=== PATIENT | male | born 1950 | race Caucasian/White ===

== ENCOUNTER 2016-08-06 11:35 | Inpatient (IN) | payer MEDICARE, OTHER ==
[2016-08-06] MEDS ORDERED: SODIUM CHLORIDE 0.9% 1,000 ML IV STA (12:55)
[2016-08-06] MEDS ORDERED: SODIUM CHLORIDE 0.9% 500 ML IV STA (12:55)
--- NOTE | 2016-08-06 13:01 | ED ---
Weakness HPI - General Chief complaint: Weakness Stated complaint: GENERAL WEAKNESS, COUGHING Time Seen by Provider: 08/06/16 12:40 Source: family, RN notes reviewed Mode of arrival: wheelchair Limitations: no limitations - History of Present Illness Initial comments: This is a 66-year-old male with a history of Down syndrome who does get pneumonia who was brought in for evaluation for decreased oral intake over last couple days cough generally not feeling well weakness. He also is been defecating in his hands. When he gets like this he she has some type of infection per his caregiver. No trauma is reported no overt fevers chills or sweats he did have some shakiness. MD Complaint: generalized weakness - Related Data Home Medications Medication Instructions Recorded Confirmed Aspirin 81 mg PO DAILY 08/06/16 08/06/16 Cholecalciferol (Vitamin D3) 1 ml PO DAILY 08/06/16 08/06/16 [Vitamin D3] Omeprazole [PriLOSEC] 40 mg PO DAILY 08/06/16 08/06/16 Allergies Allergy/AdvReac Type Severity Reaction Status Date / Time No Known Allergies Allergy Verified 08/06/16 14:29 Review of Systems ROS Statement: Those systems with pertinent positive or pertinent negative responses have been documented in the HPI. ROS Other: All systems not noted in ROS Statement are negative. Limitations: ROS unobtainable due to patients medical condition Past Medical History Additional Past Medical History / Comment(s): NON VERBAL, DOWN SYNDROME,HERNIA History of Any Multi-Drug Resistant Organisms: None Reported Additional Past Surgical History / Comment(s): BOWEL OBSTRUCTION, ESOPHAGEAL STRETCHING Past Psychological History: No Psychological Hx Reported Smoking Status: Never smoker Past Alcohol Use History: None Reported Past Drug Use History: None Reported General Exam - General Exam Comments Initial Comments: This is a asthenic appearing patient with the stigmata of Down's Limitations: no limitations General appearance: alert, lethargic Head exam: Present: atraumatic, normocephalic, normal inspection Eye exam: Present: normal appearance, PERRL, EOMI. Absent: scleral icterus, conjunctival injection, periorbital swelling ENT exam: Present: mucous membranes dry Neck exam: Present: normal inspection. Absent: tenderness, meningismus, lymphadenopathy Respiratory exam: Present: rhonchi, decreased breath sounds Cardiovascular Exam: Present: normal rhythm, tachycardia GI/Abdominal exam: Present: soft, normal bowel sounds. Absent: distended, tenderness, guarding, rebound, rigid Extremities exam: Present: normal inspection, full ROM, normal capillary refill. Absent: tenderness, pedal edema, joint swelling, calf tenderness Back exam: Present: normal inspection Neurological exam: Present: alert, altered, CN II-XII intact Psychiatric exam: Present: flat affect Skin exam: Present: warm, dry, intact, normal color. Absent: rash Course Vital Signs 08/06/16 08/06/16 08/06/16 11:39 12:45 13:06 Temperature 97.2 F L 97.9 F Pulse Rate 131 H 126 H 121 H Respiratory 18 18 18 Rate Blood Pressure 89/39 107/56 105/57 O2 Sat by Pulse 93 L 89 L 90 L Oximetry 08/06/16 14:00 Temperature 98.1 F Pulse Rate 128 H Respiratory 18 Rate Blood Pressure 104/66 O2 Sat by Pulse 93 L Oximetry - Reevaluation(s) Reevaluation #1: 08/06/16 14:45 Reevaluation patient revealed improvement in blood pressure. He was receiving IV hydration. He was noted to have a small amount emesis. EKG Findings - EKG Results: EKG: interpreted by ERMD, sinus rhythm (Sinus rhythm rate of 126. Interval 190 QRS duration 56 daily since QTC of 252/364 nonspecific T-wave configuration artifact is present.) Medical Decision Making - Medical Decision Making I did reevaluate the patient on several occasions did discuss the findings with the caregiver as well as with Dr. Callaway. Patient will be admitted with consultation by Dr. Lynne the patient demonstrates pneumonia likely aspiration along with dehydration renal insufficiency and evidence a lactic acidosis most which likely is on the basis of dehydration. Patient will be placed on appropriate medications. - Lab Data Result diagrams: 08/06/16 12:00 08/06/16 12:00 Lab Results 08/06/16 08/06/16 08/06/16 Range/Units 12:00 12:00 12:00 WBC 24.1 H (3.8-10.6) k/uL RBC 4.61 (4.30-5.90) m/uL Hgb 15.3 (13.0-17.5) gm/dL Hct 48.2 (39.0-53.0) % MCV 104.6 H (80.0-100.0) fL MCH 33.1 (25.0-35.0) pg MCHC 31.7 (31.0-37.0) g/dL RDW 15.0 (11.5-15.5) % Plt Count 306 (150-450) k/uL Neutrophils % 95 % Lymphocytes % 2 % Monocytes % 3 % Eosinophils % 0 % Basophils % 0 % Neutrophils # 22.8 H (1.3-7.7) k/uL Lymphocytes # 0.4 L (1.0-4.8) k/uL Monocytes # 0.7 (0-1.0) k/uL Eosinophils # 0.0 (0-0.7) k/uL Basophils # 0.0 (0-0.2) k/uL Macrocytosis Moderate PT (9.0-12.0) sec INR (<1.1) APTT (22.0-30.0) sec Sodium 145 (137-145) mmol/L Potassium 4.3 (3.5-5.1) mmol/L Chloride 109 H (98-107) mmol/L Carbon Dioxide 22 (22-30) mmol/L Anion Gap 14 mmol/L BUN 25 H (9-20) mg/dL Creatinine 1.15 (0.66-1.25) mg/dL Est GFR (MDRD) Af Amer >60 (>60 ml/min/1.73 sqM) Est GFR (MDRD) Non-Af >60 (>60 ml/min/1.73 sqM) Glucose 164 H (74-99) mg/dL Plasma Lactic Acid Floyd (0.7-2.0) mmol/L Calcium 8.7 (8.4-10.2) mg/dL Magnesium 2.1 (1.6-2.3) mg/dL Total Bilirubin 0.5 (0.2-1.3) mg/dL AST 45 (17-59) U/L ALT 45 (21-72) U/L Alkaline Phosphatase 102 (38-126) U/L Total Creatine Kinase 919 H (55-170) U/L CK-MB (CK-2) 5.7 H* (0.0-2.4) ng/mL CK-MB (CK-2) Rel Index 0.6 Troponin I 0.018 (0.000-0.034) ng/mL NT-Pro-B Natriuret Pep pg/mL Total Protein 8.3 H (6.3-8.2) g/dL Albumin 3.5 (3.5-5.0) g/dL 08/06/16 08/06/16 08/06/16 Range/Units 12:00 12:00 12:00 WBC (3.8-10.6) k/uL RBC (4.30-5.90) m/uL Hgb (13.0-17.5) gm/dL Hct (39.0-53.0) % MCV (80.0-100.0) fL MCH (25.0-35.0) pg MCHC (31.0-37.0) g/dL RDW (11.5-15.5) % Plt Count (150-450) k/uL Neutrophils % % Lymphocytes % % Monocytes % % Eosinophils % % Basophils % % Neutrophils # (1.3-7.7) k/uL Lymphocytes # (1.0-4.8) k/uL Monocytes # (0-1.0) k/uL Eosinophils # (0-0.7) k/uL Basophils # (0-0.2) k/uL Macrocytosis PT 11.7 (9.0-12.0) sec INR 1.2 (<1.1) APTT 23.6 (22.0-30.0) sec Sodium (137-145) mmol/L Potassium (3.5-5.1) mmol/L Chloride (98-107) mmol/L Carbon Dioxide (22-30) mmol/L Anion Gap mmol/L BUN (9-20) mg/dL Creatinine (0.66-1.25) mg/dL Est GFR (MDRD) Af Amer (>60 ml/min/1.73 sqM) Est GFR (MDRD) Non-Af (>60 ml/min/1.73 sqM) Glucose (74-99) mg/dL Plasma Lactic Acid Floyd 5.1 H* (0.7-2.0) mmol/L Calcium (8.4-10.2) mg/dL Magnesium (1.6-2.3) mg/dL Total Bilirubin (0.2-1.3) mg/dL AST (17-59) U/L ALT (21-72) U/L Alkaline Phosphatase (38-126) U/L Total Creatine Kinase (55-170) U/L CK-MB (CK-2) (0.0-2.4) ng/mL CK-MB (CK-2) Rel Index Troponin I (0.000-0.034) ng/mL NT-Pro-B Natriuret Pep 873 pg/mL Total Protein (6.3-8.2) g/dL Albumin (3.5-5.0) g/dL - Radiology Data Radiology results: report reviewed (I did review the x-ray and report evidence of posterior lung infiltrates some may be chronic increasing on the left stable in the right.), image reviewed Critical Care Time Critical Care Time: Yes Critical Care Time: 37 minutes of critical care time which includes initial monitoring of the patient with history physical lab and x-rays. Reevaluation patient several occasions. Discussion with the caregiver. Discussion with the admitting physician. Evaluation of old charting. Admission orders and documentation of the above. Disposition Clinical Impression: Aspiration pneumonia, Sepsis, Dehydration, Renal insufficiency syndrome, Tachycardia, Hypotensive episode Disposition: ADMITTED IP TO THIS [facility] Condition: Serious Referrals: Jax Callaway DO [Primary Care Provider] - 1-2 days
[2016-08-06 13:15] LABS: Basophils % (A) 0 %; CH 33.2; CHCM 31.9; Eosinophils % (A) 0 %; HCT 48.2 % (39.0-53.0); HDW 2.18; HGB 15.3 gm/dL (13.0-17.5); Luc # (Auto) 0.21; Luc % (Auto) 1; Lymphocytes # (A) 0.4 k/uL (1.0-4.8); Lymphocytes % (A) 2 %; MCH 33.1 pg (25.0-35.0); MCHC 31.7 g/dL (31.0-37.0); MCV 104.6 fL (80.0-100.0); Macrocytosis Moderate; Mean Platelet Volume 7.7; Monocytes # (A) 0.7 k/uL (0-1.0); Monocytes % (A) 3 %; Neutrophils # (A) 22.8 k/uL (1.3-7.7); Neutrophils % (A) 95 %; RBC 4.61 m/uL (4.30-5.90); WBC 24.1 k/uL (3.8-10.6); WBC (Perox) 24.89
--- NOTE | 2016-08-06 13:25 | XR ---
EXAMINATION TYPE: XR chest 2V DATE OF EXAM: 08/06/2016 1:15 PM COMPARISON: 06/14/2014 INDICATION: Weakness TECHNIQUE: Single frontal view of the chest is obtained. Patient is rotated slightly to the right. FINDINGS: The heart size is normal. The pulmonary vasculature is normal. Mild posterior infiltrates are present at the bilateral lung bases. A small right pleural effusion is likely present. IMPRESSION: 1. Posterior lung infiltrates. Correlate for pneumonia. Portion of this may be chronic. This is incre asing on the left and stable on the right.
[2016-08-06 13:30] LABS: ALT 45 U/L (21-72); AST 45 U/L (17-59); Alkaline Phosphatase 102 U/L (38-126); Anion Gap 14 mmol/L; Blood Urea Nitrogen 25 mg/dL (9-20); Calcium 8.7 mg/dL (8.4-10.2); Carbon Dioxide 22 mmol/L (22-30); Chloride 109 mmol/L (98-107); Glucose 164 mg/dL (74-99); Magnesium 2.1 mg/dL (1.6-2.3); Non-African American GFR(MDRD) >60 (>60 ml/min/1.73 sqM); Potassium 4.3 mmol/L (3.5-5.1); Sodium 145 mmol/L (137-145); Total Bilirubin 0.5 mg/dL (0.2-1.3); Total Protein 8.3 g/dL (6.3-8.2)
[2016-08-06 13:36] LABS: INR 1.2 (<1.1)
[2016-08-06 13:37] LABS: Partial Thromboplastin Time 23.6 sec (22.0-30.0); Prothrombin Time 11.7 sec (9.0-12.0)
[2016-08-06 13:47] LABS: Troponin I 0.018 ng/mL (0.000-0.034)
[2016-08-06 13:50] LABS: Creatine Kinase MB 5.7 ng/mL (0.0-2.4)
[2016-08-06] MEDS ORDERED: SODIUM CHLORIDE 0.9% 2,000 ML IV ONE (13:52)
[2016-08-06] MEDS ORDERED: LEVOFLOXACIN 500MG-D5W PMX 500 MG in DEXTROSE/WATER 1 100ML.BAG IVPB STA (13:52)
[2016-08-06] MEDS ORDERED: PIPERACILLIN-TAZOBACTAM 3.375 GM in DEXTROSE/WATER 1 50ML.BAG IVPB STA (13:53)
[2016-08-06] MEDS ORDERED: PNEUMONIA PROTOCOL UTILIZED 1 EACH MISC PO PRN (14:48)
[2016-08-06] MEDS: IPRATROPIUM-ALBUTEROL 3 ML NEB INHALATION SCH ×2 (15:48→19:05)
[2016-08-06 15:50] LABS: Amorphous Sediment,Urine Occasional /hpf; Appearance,Urine Cloudy (Clear); Bacteria,Urine Many /hpf; Bilirubin,Urine Negative (Negative); Glucose,Urine (UA) Negative (Negative); Ketones,Urine Negative (Negative); Leukocyte Esterase,Urine Trace (Negative); Mucus,Urine Rare /hpf; Nitrite,Urine Positive (Negative); PH, Urine 5.5 (5.0-8.0); Particle Count 26984; Protein,Urine Trace (Negative); RBC,Urine 1 /hpf (0-5); Specific Gravity,Urine 1.018 (1.001-1.035); Squamous Epithelial Cell,Urine 8 /hpf (0-4); UA Billing (MACRO vs. MICRO) MICRO; Urobilinogen,Urine <2.0 mg/dL (<2.0); WBC,Urine 22 /hpf (0-5)
[2016-08-06] MEDS ORDERED: ACETAMINOPHEN IV (For NPO) 1,000 MG in EMPTY BAG 1 BAG IVPB STA (19:14)
[2016-08-06] MEDS: SODIUM CHLORIDE 0.9% 1,000 ML IV SCH (19:39)
[2016-08-06 20:42] LABS: Glucose,Whole Blood 90 mg/dL (75-99)
[2016-08-06] MEDS ORDERED: NALOXONE 0.4 MG/ML 1 ML VIAL IV PRN (20:48)
[2016-08-06] MEDS ORDERED: IPRATROPIUM-ALBUTEROL 3 ML NEB INHALATION PRN (21:09)
[2016-08-06] MEDS: MICONAZOLE NITRATE 2% CREAM 14 GM TUBE TOPICAL SCH (23:07)
[2016-08-06] MEDS: PIPERACILLIN-TAZOBACTAM 3.375 GM in DEXTROSE/WATER 1 50ML.BAG IVPB SCH (23:59)
[2016-08-07] MEDS: HEPARIN SODIUM,PORCINE 5,000 UNIT/ML 1 ML VIAL SQ SCH ×4 (00:01→23:17)
[2016-08-07] MEDS: SODIUM CHLORIDE 0.9% 1,000 ML IV SCH ×3 (00:02→20:52)
[2016-08-07 06:13] LABS: INR 1.4 (<1.1); Prothrombin Time 13.6 sec (9.0-12.0)
[2016-08-07 06:16] LABS: Anion Gap 7 mmol/L; Blood Urea Nitrogen 16 mg/dL (9-20); Calcium 7.6 mg/dL (8.4-10.2); Carbon Dioxide 21 mmol/L (22-30); Chloride 111 mmol/L (98-107); Glucose 90 mg/dL (74-99); Magnesium 1.7 mg/dL (1.6-2.3); Non-African American GFR(MDRD) >60 (>60 ml/min/1.73 sqM); Phosphorous 2.3 mg/dL (2.5-4.5); Potassium 4.3 mmol/L (3.5-5.1); Sodium 139 mmol/L (137-145)
[2016-08-07 06:23] LABS: Glucose,Whole Blood 79 mg/dL (75-99)
[2016-08-07] MEDS ORDERED: Magnesium Replacement Protocol 1 EACH MISC MISCELLANE PRN (06:37)
[2016-08-07 06:54] LABS: Basophils % (A) 0 %; CHCM 31.6; Eosinophils % (A) 0 %; HCT 38.3 % (39.0-53.0); HDW 2.13; Luc # (Auto) 0.21; Luc % (Auto) 1; Lymphocytes # (A) 0.9 k/uL (1.0-4.8); Lymphocytes % (A) 6 %; MCH 33.5 pg (25.0-35.0); MCHC 31.9 g/dL (31.0-37.0); MCV 104.8 fL (80.0-100.0); Macrocytosis Moderate; Mean Platelet Volume 7.1; Monocytes # (A) 0.4 k/uL (0-1.0); Monocytes % (A) 3 %; Neutrophils # (A) 13.5 k/uL (1.3-7.7); Neutrophils % (A) 90 %; RBC 3.65 m/uL (4.30-5.90); WBC 15.1 k/uL (3.8-10.6)
[2016-08-07] MEDS: MAGNESIUM SULFATE-D5W PMX 1 GM in DEXTROSE/WATER 1 100ML.BAG IVPB SCH ×2 (06:59→08:05)
[2016-08-07 07:10] LABS: HGB 12.2 gm/dL (13.0-17.5)
[2016-08-07] MEDS: IPRATROPIUM-ALBUTEROL 3 ML NEB INHALATION SCH ×4 (07:17→20:44)
[2016-08-07] MEDS ORDERED: PANTOPRAZOLE 40 MG TABLET PO SCH (07:30)
[2016-08-07] MEDS: PIPERACILLIN-TAZOBACTAM 3.375 GM in DEXTROSE/WATER 1 50ML.BAG IVPB SCH ×3 (08:04→23:17)
[2016-08-07] MEDS: MICONAZOLE NITRATE 2% CREAM 14 GM TUBE TOPICAL SCH ×2 (08:05→20:51)
--- NOTE | 2016-08-07 08:16 | XR ---
EXAMINATION TYPE: XR chest 1V DATE OF EXAM: 08/07/2016 6:39 AM COMPARISON: 08/06/2016 HISTORY: 66-year-old male pneumonia TECHNIQUE: Single frontal view of the chest is obtained. FINDINGS: Right lower patient rotation alters the normal cardiomediastinal contours. There is interval worsenin g in bilateral lower lung airspace opacity, particularly on the right with suggestion of a increased small right pleural effusion. Abnormal opacities extend up to the mid lung level. IMPRESSION: Interval worsening in bibasilar consolidation, particularly on the right. Increased small right pleur al effusion.
[2016-08-07] MEDS ORDERED: CHOLECALCIFEROL PO SCH (09:00)
[2016-08-07] MEDS: ASPIRIN 81 MG CHEW PO SCH (11:02)
--- NOTE | 2016-08-07 11:26 | P.CNPUL ---
History of Present Illness Consult date: 08/07/16 Requesting physician: Jax Callaway Reason for consult: pneumonia, other (sepsis, dehydration) Chief complaint: shortness of breath History of present illness: This is a 66-year-old male patient being evaluated and examined in the ICU today. This patient is well-known to our services. This patient was brought into the emergency room for generalized malaise, weakness, decreased oral intake , cough and shortness of breath. This patient does have a history of Down's syndrome and is known to get pneumonia quite frequently. He is also known to have a history of esophageal stenosis in the past which has required esophageal dilation, ultimately he has continued to have some difficulty with swallowing. Speech therapist tried to perform a swallow evaluation with the patient however he is still congested at this time, therefore she cannot say he passed or he failed due to his constant congestion. Patient does not have the ability to cough up his secretions on his own, cough remains weak. The cough continues to sound very congested and productive. Suction is hooked up at bedside, nurse continues to try to help the patient bring out the sputum however the patient continues to bite down on the younker. Patient was also noted to be febrile throughout the night, he was given IV acetaminophen which was effective. Upon examination the patient is resting up in bed on 5 L via nasal cannula he is noted to desaturate with any significant movement, requiring an increase in his oxygen at times. He is afebrile this morning. Review of Systems 14 point review of systems was completed and is negative other than what is noted in the HPI. Past Medical History Past Medical History: Pneumonia Additional Past Medical History / Comment(s): NON VERBAL, DOWN SYNDROME,HERNIA History of Any Multi-Drug Resistant Organisms: None Reported Past Surgical History: No Surgical Hx Reported Additional Past Surgical History / Comment(s): BOWEL OBSTRUCTION, ESOPHAGEAL STRETCHING Past Anesthesia/Blood Transfusion Reactions: No Reported Reaction Past Psychological History: No Psychological Hx Reported Additional Psychological History / Comment(s): hx of down syndrome Smoking Status: Never smoker Past Alcohol Use History: None Reported Past Drug Use History: None Reported Medications and Allergies Home Medications Medication Instructions Recorded Confirmed Type Aspirin 81 mg PO DAILY 08/06/16 08/06/16 History Cholecalciferol (Vitamin D3) 1 ml PO DAILY 08/06/16 08/06/16 History [Vitamin D3] Omeprazole [PriLOSEC] 40 mg PO DAILY 08/06/16 08/06/16 History Allergies Allergy/AdvReac Type Severity Reaction Status Date / Time No Known Allergies Allergy Verified 08/06/16 14:29 Physical Exam Vitals: Vital Signs Temp Pulse Pulse Pulse Resp BP BP 08/07/16 10:58 105 H 08/07/16 10:40 08/07/16 10:30 110 H 22 89/57 08/07/16 10:00 82 24 88/46 08/07/16 09:30 82 22 86/49 08/07/16 09:00 105 H 20 91/48 08/07/16 08:30 93 18 88/43 08/07/16 08:00 99.3 F 103 H 20 87/49 08/07/16 07:30 99.3 F 89 18 87/49 08/07/16 07:29 92 08/07/16 07:20 86 08/07/16 07:00 100 33 H 115/53 08/07/16 06:30 89 22 95/61 08/07/16 06:00 94 25 H 84/61 08/07/16 05:30 92 28 H 80/61 08/07/16 05:00 90 25 H 80/61 08/07/16 04:00 98.4 F 97 24 08/07/16 03:30 102 H 26 H 89/53 08/07/16 03:13 115 H 115 H 26 H 08/07/16 03:00 112 H 26 H 75/50 08/07/16 02:30 105 H 29 H 91/54 08/07/16 02:00 103 H 28 H 91/54 08/07/16 01:30 110 H 29 H 92/51 08/07/16 01:00 111 H 27 H 92/54 08/07/16 00:30 103 H 28 H 92/56 08/07/16 00:00 98.2 F 109 H 115 H 115 H 28 H 92/56 08/06/16 23:30 106 H 29 H 92/56 08/06/16 23:06 108 H 26 H 92/56 08/06/16 23:00 104 H 27 H 92/56 08/06/16 22:30 107 H 26 H 102/48 08/06/16 22:20 105 H 30 H 102/48 08/06/16 22:10 105 H 115 H 115 H 30 H 102/48 08/06/16 22:00 111 H 31 H 102/48 08/06/16 21:50 110 H 27 H 102/48 08/06/16 21:40 124 H 30 H 102/48 08/06/16 21:30 109 H 27 H 102/48 08/06/16 21:20 120 H 30 H 102/48 08/06/16 21:10 111 H 27 H 102/48 08/06/16 21:00 114 H 26 H 102/48 08/06/16 20:50 113 H 28 H 102/48 08/06/16 20:40 114 H 29 H 08/06/16 20:39 98.7 F 102 H 36 H 08/06/16 20:15 99.5 F 125 H 18 115/54 08/06/16 19:16 127 H 08/06/16 19:14 100.4 F H 124 H 18 109/63 08/06/16 19:05 129 H 08/06/16 19:02 98.7 F 115 H 20 102/48 08/06/16 18:16 100.1 F H 119 H 24 104/55 08/06/16 16:25 99.4 F 129 H 20 100/57 08/06/16 16:00 124 H 08/06/16 15:50 124 H 08/06/16 15:25 97.5 F L 130 H 22 109/60 08/06/16 14:00 98.1 F 128 H 18 104/66 08/06/16 13:06 121 H 18 105/57 08/06/16 12:45 97.9 F 126 H 18 107/56 08/06/16 11:39 97.2 F L 131 H 18 89/39 Pulse Ox 08/07/16 10:58 08/07/16 10:40 92 L 08/07/16 10:30 90 L 08/07/16 10:00 91 L 08/07/16 09:30 94 L 08/07/16 09:00 93 L 08/07/16 08:30 93 L 08/07/16 08:00 95 08/07/16 07:30 96 08/07/16 07:29 08/07/16 07:20 96 08/07/16 07:00 96 08/07/16 06:30 96 0523/17 06:00 95 08/07/16 05:30 94 L 08/07/16 05:00 96 08/07/16 04:00 96 08/07/16 03:30 94 L 08/07/16 03:13 08/07/16 03:00 93 L 08/07/16 02:30 08/07/16 02:00 94 L 08/07/16 01:30 92 L 08/07/16 01:00 95 08/07/16 00:30 95 08/07/16 00:00 95 08/06/16 23:30 95 08/06/16 23:06 94 L 08/06/16 23:00 94 L 08/06/16 22:30 93 L 08/06/16 22:20 94 L 08/06/16 22:10 95 08/06/16 22:00 94 L 08/06/16 21:50 94 L 08/06/16 21:40 91 L 08/06/16 21:30 95 08/06/16 21:20 95 08/06/16 21:10 95 08/06/16 21:00 94 L 08/06/16 20:50 94 L 08/06/16 20:40 95 08/06/16 20:39 93 L 08/06/16 20:15 94 L 08/06/16 19:16 08/06/16 19:14 08/06/16 19:05 08/06/16 19:02 95 08/06/16 18:16 96 08/06/16 16:25 94 L 08/06/16 16:00 08/06/16 15:50 08/06/16 15:25 90 L 08/06/16 14:00 93 L 08/06/16 13:06 90 L 08/06/16 12:45 89 L 08/06/16 11:39 93 L Intake and Output 08/06/16 08/07/16 08/07/16 22:59 06:59 14:59 Intake Total 200 912.5 325.0 Output Total 640 1131 470 Balance -440 -218.5 -145.0 Intake: IV 512.5 225.0 Piperacillin-Tazobactam 3 12.5 25.0 .375 gm In Dextrose/Water 1 50ml.bag @ 12.5 mls/hr IVPB Q8HR [facility]IZA Rx#: [id number] Sodium Chloride 0.9% 1, 500 200 000 ml @ 100 mls/hr IV . Q10H [facility]IZA Rx#:[id number] Intake, IV Titration 200 400 100 Amount Magnesium Sulfate-D5w Pmx 100 1 gm In Dextrose/Water 1 100ml.bag @ 100 mls/hr IVPB Q1H [facility]IZA Rx#: [id number] Sodium Chloride 0.9% 1, 200 400 000 ml @ 100 mls/hr IV . Q10H [facility]IZA Rx#:[id number] Output: Urine 640 1131 470 Uretheral (Tavares) 15 250 Other: Voiding Method Indwelling Catheter Indwelling Catheter Indwelling Catheter Weight 49.895 kg 49 kg 49 kg Patient Weight 08/08/16 06:59 Weight 49 kg GENERAL EXAM: Alert, nonverbal, comfortable in no apparent distress. HEAD: Normocephalic. EYES: Normal reaction of pupils, equal size. NOSE: Clear with pink turbinates. THROAT: No erythema or exudates. NECK: No masses, no JVD. CHEST: No chest wall deformity. LUNGS: Lung sounds course and congested throughout, bilateral rhonchi and wheezes scattered throughout. Bases diminished CVS: S1 and S2 normal with no audible mumurs, regular rhythm. ABDOMEN: No hepatosplenomegaly, normal bowel sounds, no guarding or rigidity. EXTREMITIES: No edema noted, pedal pulses palpable. SKIN: Bilateral erythema noted to feet CENTRAL NERVOUS SYSTEM: No focal deficits, tone is normal in all 4 extremities. Results - Laboratory Findings CBC and BMP: 08/07/16 05:37 08/07/16 05:37 PT/INR, D-dimer PT 13.6 sec (9.0-12.0) H 08/07/16 05:37 INR 1.4 (<1.1) 08/07/16 05:37 Abnormal lab findings: Abnormal Labs 08/06/16 08/06/16 08/06/16 12:00 12:00 12:00 WBC 24.1 H RBC Hgb Hct MCV 104.6 H Neutrophils # 22.8 H Lymphocytes # 0.4 L PT Chloride 109 H Carbon Dioxide BUN 25 H Glucose 164 H Plasma Lactic Acid Floyd Calcium Phosphorus Total Creatine Kinase 919 H CK-MB (CK-2) 5.7 H* Total Protein 8.3 H Urine Protein Ur Leukocyte Esterase Urine WBC Ur Squamous Epith Cells Amorphous Sediment Urine Bacteria Hyaline Casts Urine Mucus 08/06/16 08/06/16 08/06/16 12:00 15:10 16:35 WBC RBC Hgb Hct MCV Neutrophils # Lymphocytes # PT Chloride Carbon Dioxide BUN Glucose Plasma Lactic Acid Floyd 5.1 H* 4.8 H* Calcium Phosphorus Total Creatine Kinase CK-MB (CK-2) Total Protein Urine Protein Trace H Ur Leukocyte Esterase Trace H Urine WBC 22 H Ur Squamous Epith Cells 8 H Amorphous Sediment Occasional H Urine Bacteria Many H Hyaline Casts 3 H Urine Mucus Rare H 08/06/16 08/06/16 08/07/16 19:02 22:21 05:37 WBC 15.1 H RBC 3.65 L Hgb 12.2 L D Hct 38.3 L MCV 104.8 H Neutrophils # 13.5 H Lymphocytes # 0.9 L PT Chloride Carbon Dioxide BUN Glucose Plasma Lactic Acid Floyd 3.1 H* 3.3 H* Calcium Phosphorus Total Creatine Kinase CK-MB (CK-2) Total Protein Urine Protein Ur Leukocyte Esterase Urine WBC Ur Squamous Epith Cells Amorphous Sediment Urine Bacteria Hyaline Casts Urine Mucus 08/07/16 08/07/16 08/07/16 05:37 05:37 07:43 WBC RBC Hgb Hct MCV Neutrophils # Lymphocytes # PT 13.6 H Chloride 111 H Carbon Dioxide 21 L BUN Glucose Plasma Lactic Acid Floyd 2.3 H* Calcium 7.6 L Phosphorus 2.3 L Total Creatine Kinase CK-MB (CK-2) Total Protein Urine Protein Ur Leukocyte Esterase Urine WBC Ur Squamous Epith Cells Amorphous Sediment Urine Bacteria Hyaline Casts Urine Mucus - Diagnostic Findings Chest x-ray: report reviewed, image reviewed Assessment and Plan Plan: Assessment Bilateral pneumonia, more so on the right than the left, suspect aspiration pneumonia Small right pleural effusion Sepsis Dehydration Tachycardia Hypotension Plan Medications have been reviewed and will be continued as ordered. Continue with IV antibiotics. We will add IV steroids. Continue with pulmonary hygiene, coughing and deep breathing exercises, and supportive care. Supplemental oxygen to maintain oxygen saturations of 92% or better. Continue nebulizer treatments we will add budesonide to his current aerosol treatments. GI and DVT prophylaxis. We will switch his oral Protonix over to IV due to his difficulty with swallowing. Patient should be reevaluated tomorrow for swallow eval. Patient is a DO NOT RESUSCITATE, brother is at bedside and updated on plan of care and prognosis. We will continue to monitor labs/results and adjust treatment as necessary. Further recommendations pending. I performed an examination of the patient and discussed their management with the nurse practitioner. I have reviewed the nurse practitioner's note and agree with the documented findings and plan of care.
[2016-08-07] MEDS: methylPREDNISolone SOD SUCCI 40 MG/ML 1 ML VIAL IV SCH ×3 (11:55→23:16)
[2016-08-07] MEDS: PANTOPRAZOLE 40 MG/10 ML VIAL IVP SCH (11:55)
[2016-08-07 12:10] LABS: Glucose,Whole Blood 101 mg/dL (75-99)
[2016-08-07] MEDS: LEVOFLOXACIN 250MG-D5W PMX 250 MG in DEXTROSE/WATER 1 50ML.BAG IVPB SCH (14:26)
[2016-08-07] MEDS ORDERED: SODIUM CHLORIDE 0.9% 500 ML IV ONE (14:45)
[2016-08-07] MEDS ORDERED: LEVOFLOXACIN 750MG-D5W PMX 500 MG in DEXTROSE/WATER 1 150ML.BAG IVPB SCH (15:00)
--- NOTE | 2016-08-07 16:08 | P.HPIM ---
History of Present Illness H&P Date: 08/07/16 Chief Complaint: Generalized weakness, coughing Patient is a 66-year-old male, patient of Dr. Jax Callaway in the outpatient setting, with medical history significant for Down syndrome, bowel obstruction, esophageal stenosis requiring dilatation, dysphasia, and pneumonia. Patient presented to the emergency department with chief complaint of decreased oral intake, cough, and generalized weakness. Admission workup with evidence of dehydration, multilobar pneumonia, and severe sepsis. Patient was fluid resuscitated with 2.5 L of normal saline in the emergency department and started on IV antibiotics in form of Levaquin and Zosyn. Patient was admitted to the intensive care unit with consult to Dr. Lynne for pulmonary and ICU management. Patient is evaluated in the intensive care unit with brother at bedside. Patient is nonverbal. Per nurse, patient has a nonproductive, weak cough with inability to bring up much sputum. Patient is currently on 5 L nasal cannula with oxygen saturation of 88%. Blood pressure systolic in the high 80s to low 90s throughout the night. Urine output adequate. White count decreased to 15.1. Hemoglobin decreased to 12.2. Lactic acid decreased to 2.3 from 3.3 on admission. Past Medical History Past Medical History: Pneumonia Additional Past Medical History / Comment(s): NON VERBAL, DOWN SYNDROME,HERNIA History of Any Multi-Drug Resistant Organisms: None Reported Past Surgical History: No Surgical Hx Reported Additional Past Surgical History / Comment(s): BOWEL OBSTRUCTION, ESOPHAGEAL STRETCHING Past Anesthesia/Blood Transfusion Reactions: No Reported Reaction Past Psychological History: No Psychological Hx Reported Additional Psychological History / Comment(s): hx of down syndrome Smoking Status: Never smoker Past Alcohol Use History: None Reported Past Drug Use History: None Reported Medications and Allergies Home Medications Medication Instructions Recorded Confirmed Type Aspirin 81 mg PO DAILY 08/06/16 08/06/16 History Cholecalciferol (Vitamin D3) 1 ml PO DAILY 08/06/16 08/06/16 History [Vitamin D3] Omeprazole [PriLOSEC] 40 mg PO DAILY 08/06/16 08/06/16 History Allergies Allergy/AdvReac Type Severity Reaction Status Date / Time No Known Allergies Allergy Verified 08/06/16 14:29 Physical Exam Vitals: Vital Signs Temp Pulse Pulse Pulse Resp BP BP 08/07/16 14:00 93 20 90/46 05/23/17 13:30 95 24 90/47 05/23/17 13:00 115 H 22 90/47 08/07/16 12:30 124 H 22 109/43 08/07/16 12:00 99.6 F 110 H 24 91/41 08/07/16 11:30 125 H 22 101/48 08/07/16 11:10 117 H 08/07/16 11:00 97 24 96/58 08/07/16 10:58 105 H 08/07/16 10:40 08/07/16 10:30 110 H 22 89/57 08/07/16 10:00 82 24 88/46 08/07/16 09:30 82 22 86/49 08/07/16 09:00 105 H 20 91/48 08/07/16 08:30 93 18 88/43 08/07/16 08:00 99.3 F 103 H 20 87/49 08/07/16 07:30 99.3 F 89 18 87/49 08/07/16 07:29 92 08/07/16 07:20 86 08/07/16 07:00 100 33 H 115/53 08/07/16 06:30 89 22 95/61 08/07/16 06:00 94 25 H 84/61 08/07/16 05:30 92 28 H 80/61 08/07/16 05:00 90 25 H 80/61 08/07/16 04:00 98.4 F 97 24 08/07/16 03:30 102 H 26 H 89/53 08/07/16 03:13 115 H 115 H 26 H 08/07/16 03:00 112 H 26 H 75/50 08/07/16 02:30 105 H 29 H 91/54 08/07/16 02:00 103 H 28 H 91/54 08/07/16 01:30 110 H 29 H 92/51 08/07/16 01:00 111 H 27 H 92/54 08/07/16 00:30 103 H 28 H 92/56 08/07/16 00:00 98.2 F 109 H 115 H 115 H 28 H 92/56 08/06/16 23:30 106 H 29 H 92/56 17 23:06 108 H 26 H 92/56 08/06/16 23:00 104 H 27 H 92/56 08/06/16 22:30 107 H 26 H 102/48 08/06/16 22:20 105 H 30 H 102/48 08/06/16 22:10 105 H 115 H 115 H 30 H 102/48 08/06/16 22:00 111 H 31 H 102/48 08/06/16 21:50 110 H 27 H 102/48 08/06/16 21:40 124 H 30 H 102/48 08/06/16 21:30 109 H 27 H 102/48 08/06/16 21:20 120 H 30 H 102/48 08/06/16 21:10 111 H 27 H 102/48 08/06/16 21:00 114 H 26 H 102/48 08/06/16 20:50 113 H 28 H 102/48 08/06/16 20:40 114 H 29 H 08/06/16 20:39 98.7 F 102 H 36 H 08/06/16 20:15 99.5 F 125 H 18 115/54 08/06/16 19:16 127 H 08/06/16 19:14 100.4 F H 124 H 18 109/63 08/06/16 19:05 129 H 08/06/16 19:02 98.7 F 115 H 20 102/48 08/06/16 18:16 100.1 F H 119 H 24 104/55 08/06/16 16:25 99.4 F 129 H 20 100/57 08/06/16 16:00 124 H 08/06/16 15:50 124 H 08/06/16 15:25 97.5 F L 130 H 22 109/60 Pulse Ox 08/07/16 14:00 97 08/07/16 13:30 98 08/07/16 13:00 94 L 08/07/16 12:30 92 L 08/07/16 12:00 93 L 08/07/16 11:30 93 L 08/07/16 11:10 08/07/16 11:00 94 L 08/07/16 10:58 08/07/16 10:40 92 L 08/07/16 10:30 90 L 08/07/16 10:00 91 L 08/07/16 09:30 94 L 08/07/16 09:00 93 L 08/07/16 08:30 93 L 08/07/16 08:00 95 08/07/16 07:30 96 08/07/16 07:29 08/07/16 07:20 96 08/07/16 07:00 96 08/07/16 06:30 96 08/07/16 06:00 95 08/07/16 05:30 94 L 08/07/16 05:00 96 08/07/16 04:00 96 08/07/16 03:30 94 L 08/07/16 03:13 08/07/16 03:00 93 L 08/07/16 02:30 08/07/16 02:00 94 L 08/07/16 01:30 92 L 08/07/16 01:00 95 08/07/16 00:30 95 08/07/16 00:00 95 08/06/16 23:30 95 08/06/16 23:06 94 L 08/06/16 23:00 94 L 08/06/16 22:30 93 L 08/06/16 22:20 94 L 08/06/16 22:10 95 08/06/16 22:00 94 L 08/06/16 21:50 94 L 08/06/16 21:40 91 L 08/06/16 21:30 95 08/06/16 21:20 95 08/06/16 21:10 95 08/06/16 21:00 94 L 08/06/16 20:50 94 L 08/06/16 20:40 95 08/06/16 20:39 93 L 08/06/16 20:15 94 L 08/06/16 19:16 08/06/16 19:14 08/06/16 19:05 08/06/16 19:02 95 08/06/16 18:16 96 08/06/16 16:25 94 L 08/06/16 16:00 08/06/16 15:50 08/06/16 15:25 90 L Intake and Output 08/07/16 08/07/16 08/07/16 06:59 14:59 22:59 Intake Total 912.5 750.0 Output Total 1131 815 Balance -218.5 -65.0 Intake: IV 512.5 650.0 Piperacillin-Tazobactam 3 12.5 50.0 .375 gm In Dextrose/Water 1 50ml.bag @ 12.5 mls/hr IVPB Q8HR [facility] Rx#: [id number] Sodium Chloride 0.9% 1, 500 600 000 ml @ 100 mls/hr IV . Q10H [facility] Rx#:[id number] Intake, IV Titration 400 100 Amount Magnesium Sulfate-D5w Pmx 100 1 gm In Dextrose/Water 1 100ml.bag @ 100 mls/hr IVPB Q1H [facility] Rx#: [id number] Sodium Chloride 0.9% 1, 400 000 ml @ 100 mls/hr IV . Q10H [facility] Rx#:[id number] Output: Urine 1131 815 Uretheral (Tavares) 250 Other: Voiding Method Indwelling Catheter Indwelling Catheter Weight 49 kg 49 kg Patient Weight 08/08/16 06:59 Weight 49 kg GENERAL: Pt awake and alert, sitting up in bed, nonverbal, appears in acute distress. HEAD: Atraumatic, normocephalic. EYES: Pupils equal, round, and reactive to light, sclera anicteric, conjunctiva are normal. ENT: Moist mucous membranes. NECK:Supple without lymphadenopathy or JVD. Neck midline. LUNGS: Breath sounds with coarse rhonchi and crackles to auscultation bilaterally. HEART: Heart S1, S2, no S3 or S4. Sinus tachycardia on monitor. No murmurs, rubs or gallops. ABDOMEN: Soft, nontender, nondistended, normoactive bowel sounds. No guarding, no rebound. No masses or organomegaly appreciated. EXTREMITIES: Palpable peripheral pulses. No edema. NEUROLOGICAL: Pt awake and alert. Nonverbal. Moves all 4 extremities. PSYCH: Calm. SKIN: Warm, dry. Results CBC & Chem 7: 08/07/16 05:37 08/07/16 05:37 Labs: Abnormal Lab Results - Last 24 Hours (Table) 08/06/16 08/06/16 08/06/16 Range/Units 15:10 16:35 19:02 WBC (3.8-10.6) k/uL RBC (4.30-5.90) m/uL Hgb (13.0-17.5) gm/dL Hct (39.0-53.0) % MCV (80.0-100.0) fL Neutrophils # (1.3-7.7) k/uL Lymphocytes # (1.0-4.8) k/uL PT (9.0-12.0) sec Chloride (98-107) mmol/L Carbon Dioxide (22-30) mmol/L POC Glucose (mg/dL) (75-99) mg/dL Plasma Lactic Acid Floyd 4.8 H* 3.1 H* (0.7-2.0) mmol/L Calcium (8.4-10.2) mg/dL Phosphorus (2.5-4.5) mg/dL Urine Protein Trace H (Negative) Ur Leukocyte Esterase Trace H (Negative) Urine WBC 22 H (0-5) /hpf Ur Squamous Epith Cells 8 H (0-4) /hpf Amorphous Sediment Occasional H (None) /hpf Urine Bacteria Many H (None) /hpf Hyaline Casts 3 H (0-2) /lpf Urine Mucus Rare H (None) /hpf 08/06/16 08/07/16 08/07/16 Range/Units 22:21 05:37 05:37 WBC 15.1 H (3.8-10.6) k/uL RBC 3.65 L (4.30-5.90) m/uL Hgb 12.2 L D (13.0-17.5) gm/dL Hct 38.3 L (39.0-53.0) % MCV 104.8 H (80.0-100.0) fL Neutrophils # 13.5 H (1.3-7.7) k/uL Lymphocytes # 0.9 L (1.0-4.8) k/uL PT (9.0-12.0) sec Chloride 111 H (98-107) mmol/L Carbon Dioxide 21 L (22-30) mmol/L POC Glucose (mg/dL) (75-99) mg/dL Plasma Lactic Acid Floyd 3.3 H* (0.7-2.0) mmol/L Calcium 7.6 L (8.4-10.2) mg/dL Phosphorus 2.3 L (2.5-4.5) mg/dL Urine Protein (Negative) Ur Leukocyte Esterase (Negative) Urine WBC (0-5) /hpf Ur Squamous Epith Cells (0-4) /hpf Amorphous Sediment (None) /hpf Urine Bacteria (None) /hpf Hyaline Casts (0-2) /lpf Urine Mucus (None) /hpf 08/07/16 08/07/16 08/07/16 Range/Units 05:37 07:43 12:09 WBC (3.8-10.6) k/uL RBC (4.30-5.90) m/uL Hgb (13.0-17.5) gm/dL Hct (39.0-53.0) % MCV (80.0-100.0) fL Neutrophils # (1.3-7.7) k/uL Lymphocytes # (1.0-4.8) k/uL PT 13.6 H (9.0-12.0) sec Chloride (98-107) mmol/L Carbon Dioxide (22-30) mmol/L POC Glucose (mg/dL) 101 H (75-99) mg/dL Plasma Lactic Acid Floyd 2.3 H* (0.7-2.0) mmol/L Calcium (8.4-10.2) mg/dL Phosphorus (2.5-4.5) mg/dL Urine Protein (Negative) Ur Leukocyte Esterase (Negative) Urine WBC (0-5) /hpf Ur Squamous Epith Cells (0-4) /hpf Amorphous Sediment (None) /hpf Urine Bacteria (None) /hpf Hyaline Casts (0-2) /lpf Urine Mucus (None) /hpf Chest x-ray: report reviewed (08/06/2016: Posterior lung infiltrates. Correlate for pneumonia. Portion of this may be chronic. This is increasing on the left and stable on the right. As read by Dr. Mckeon, radiologist. : Interval worsening in bibasilar consultation, particularly on the right. Increased small right pleural effusion. As read by Dr. Garcia, radiologist) Thrombosis Risk Factor Assmnt - DVT/VTE Prophylaxis DVT/VTE Prophylaxis: Pharmacologic Prophylaxis ordered - Choose All That Apply Each Factor Represents 1 point: Medical pt on bed rest, Sepsis (< 1month), Serious lung disease incl. pneumonia (< 1month) Each Risk Factor Represents 2 Points: Age 61-74 years Thrombosis Risk Factor Assessment Total Risk Factor Score: 5 Thrombosis Risk Factor Assessment Level: High Risk Assessment and Plan Plan: Impression and plan: 1. Severe sepsis suspect secondary to multilobar pneumonia, suspect aspiration. Pulmonary service on consult, recommendations pending. Continue IV antibiotics, supplemental oxygen to keep saturation greater than 92%, aspiration precautions, nebulized updraft treatments, systemic steroids, and IV hydration. 2. Anemia, suspect dilutional. Hemoglobin 12.2. 3. Dehydration, present on admission. BUN to creatinine ratio greater than 20. Currently improved. 4. Dysphagia with history of esophageal stricture with previous dilatation. Speech therapy has evaluated patient is currently recommending nothing by mouth. Patient will be reevaluated in next 1-2 days. 5. History of Down syndrome. Continue to monitor patient. Continue current medications. Continue GI and DVT prophylaxis. Continue aspiration precautions. Continue to follow with pulmonary service. Repeat CBC and BMP in a.m. Patient is a DO NOT RESUSCITATE. The above impression and plan have been discussed and directed by Dr. Callaway. Jalen PEÑA acting as scribe for Dr. Callaway.
[2016-08-07 17:40] LABS: Glucose,Whole Blood 136 mg/dL (75-99)
[2016-08-07] MEDS: BUDESONIDE 1 MG/2 ML NEBU INHALATION SCH (20:56)
[2016-08-07 23:58] LABS: Glucose,Whole Blood 169 mg/dL (75-99)
[2016-08-08 04:47] LABS: Basophils % (A) 0 %; CHCM 32.4; Eosinophils % (A) 0 %; HCT 34.4 % (39.0-53.0); HDW 2.24; HGB 11.1 gm/dL (13.0-17.5); Luc # (Auto) 0.03; Luc % (Auto) 0; Lymphocytes # (A) 0.4 k/uL (1.0-4.8); Lymphocytes % (A) 4 %; MCH 33.1 pg (25.0-35.0); MCHC 32.3 g/dL (31.0-37.0); MCV 102.5 fL (80.0-100.0); Macrocytosis Slight; Mean Platelet Volume 7.8; Monocytes # (A) 0.2 k/uL (0-1.0); Monocytes % (A) 2 %; Neutrophils # (A) 10.4 k/uL (1.3-7.7); Neutrophils % (A) 94 %; RBC 3.36 m/uL (4.30-5.90); RDW 15.1 % (11.5-15.5); WBC (Perox) 11.37
[2016-08-08 05:00] LABS: Anion Gap 5 mmol/L; Blood Urea Nitrogen 14 mg/dL (9-20); Calcium 7.5 mg/dL (8.4-10.2); Carbon Dioxide 21 mmol/L (22-30); Chloride 111 mmol/L (98-107); Glucose 134 mg/dL (74-99); Magnesium 2.1 mg/dL (1.6-2.3); Non-African American GFR(MDRD) >60 (>60 ml/min/1.73 sqM); Phosphorous 2.7 mg/dL (2.5-4.5); Sodium 137 mmol/L (137-145)
[2016-08-08 06:15] LABS: Glucose,Whole Blood 124 mg/dL (75-99)
--- NOTE | 2016-08-08 07:17 | XR ---
EXAMINATION TYPE: XR chest 1V DATE OF EXAM: 08/08/2016 7:04 AM HISTORY: pneumonia. REFERENCE: Previous study dated 08/07/2016. FINDINGS: There is bilateral consolidation, worse on the right than the left. This is essentially unc hanged from previous. There is mild, associated vascular congestion and interstitial change. I could not exclude some degree of associated heart failure. Heart size is obscured. IMPRESSION: 1. BILATERAL PNEUMONIAS. 2. I COULD NOT EXCLUDE SOME SUPERIMPOSED HEART FAILURE. PLEASE CORRELATE CLINICALLY.
[2016-08-08] MEDS: BUDESONIDE 1 MG/2 ML NEBU INHALATION SCH ×2 (07:35→19:54)
[2016-08-08] MEDS: IPRATROPIUM-ALBUTEROL 3 ML NEB INHALATION SCH ×4 (07:35→19:54)
[2016-08-08] MEDS: PANTOPRAZOLE 40 MG/10 ML VIAL IVP SCH (08:18)
[2016-08-08] MEDS: HEPARIN SODIUM,PORCINE 5,000 UNIT/ML 1 ML VIAL SQ SCH ×2 (08:18→16:35)
[2016-08-08] MEDS: PIPERACILLIN-TAZOBACTAM 3.375 GM in DEXTROSE/WATER 1 50ML.BAG IVPB SCH ×2 (08:18→16:35)
[2016-08-08] MEDS: methylPREDNISolone SOD SUCCI 40 MG/ML 1 ML VIAL IV SCH ×2 (08:18→16:35)
[2016-08-08] MEDS: SODIUM CHLORIDE 0.9% 1,000 ML IV SCH ×2 (08:19→17:05)
[2016-08-08] MEDS: MICONAZOLE NITRATE 2% CREAM 14 GM TUBE TOPICAL SCH ×2 (08:19→21:59)
--- NOTE | 2016-08-08 10:28 | P.PN ---
Subjective This is a 66-year-old male patient being evaluated and examined in the ICU today. This patient is well-known to our services. This patient was brought into the emergency room for generalized malaise, weakness, decreased oral intake , cough and shortness of breath. This patient does have a history of Down's syndrome and is known to get pneumonia quite frequently. He is also known to have a history of esophageal stenosis in the past which has required esophageal dilation, ultimately he has continued to have some difficulty with swallowing. Speech therapist tried to perform a swallow evaluation with the patient however he is still congested at this time, therefore she cannot say he passed or he failed due to his constant congestion. Patient does not have the ability to cough up his secretions on his own, cough remains weak. The cough continues to sound very congested and productive. Suction is hooked up at bedside, nurse continues to try to help the patient bring out the sputum however the patient continues to bite down on the younker. Upon examination the patient is resting up in bed on 2 L via nasal cannula which is a decrease and supplemental oxygen from 5 L yesterday. Patient did have one hypotensive episode yesterday which was resolved with a 500 mL bolus over one hour. Patient continues to have a weak congested cough. He is afebrile this morning, and had no overnight issues. Patient is hemodynamically stable at this time. Patient has had good urine output. Objective - Vital Signs Vital signs: Vital Signs Temp 96.9 F L 08/08/16 04:00 Pulse 69 08/08/16 07:55 Resp 28 H 08/08/16 07:00 BP 97/54 08/08/16 07:00 Pulse Ox 95 08/08/16 07:00 Intake & Output 08/07/16 08/08/16 08/08/16 18:59 06:59 18:59 Intake Total 1637.5 1237.5 Output Total 1030 882 Balance 607.5 355.5 Weight 49 kg 51.5 kg Intake: IV 987.5 1237.5 Piperacillin-Tazobactam 3 87.5 37.5 .375 gm In Dextrose/Water 1 50ml.bag @ 12.5 mls/hr IVPB Q8HR [facility] Rx#: [id number] Sodium Chloride 0.9% 1, 900 1200 000 ml @ 100 mls/hr IV . Q10H [facility] Rx#:[id number] Intake, IV Titration 650 Amount Levofloxacin 250Mg-D5w 50 Pmx 250 mg In Dextrose/ Water 1 50ml.bag @ 50 mls /hr IVPB Q24H [facility] Rx#: [id number] Magnesium Sulfate-D5w Pmx 100 1 gm In Dextrose/Water 1 100ml.bag @ 100 mls/hr IVPB Q1H [facility] Rx#: [id number] Sodium Chloride 0.9% 500 500 ml @ 999 mls/hr IV .Q31M [facility] Rx#:[id number] Output: Urine 1030 882 Other: Voiding Method Indwelling Catheter Indwelling Catheter - Exam GENERAL EXAM: Alert, nonverbal, comfortable in no apparent distress. HEAD: Normocephalic. EYES: Normal reaction of pupils, equal size. NOSE: Clear with pink turbinates. THROAT: No erythema or exudates. NECK: No masses, no JVD. CHEST: No chest wall deformity. LUNGS: Lung sounds course and congested throughout, bilateral rhonchi and wheezes scattered throughout. Bases diminished CVS: S1 and S2 normal with no audible mumurs, regular rhythm. ABDOMEN: No hepatosplenomegaly, normal bowel sounds, no guarding or rigidity. EXTREMITIES: No edema noted, pedal pulses palpable. SKIN: Bilateral erythema noted to feet CENTRAL NERVOUS SYSTEM: No focal deficits, tone is normal in all 4 extremities. - Labs CBC & Chem 7: 08/08/16 04:04 08/08/16 04:04 Labs: Abnormal Lab Results - Last 24 Hours (Table) 08/07/16 08/07/16 08/07/16 Range/Units 12:09 17:38 23:55 WBC (3.8-10.6) k/uL RBC (4.30-5.90) m/uL Hgb (13.0-17.5) gm/dL Hct (39.0-53.0) % MCV (80.0-100.0) fL Neutrophils # (1.3-7.7) k/uL Lymphocytes # (1.0-4.8) k/uL Chloride (98-107) mmol/L Carbon Dioxide (22-30) mmol/L Glucose (74-99) mg/dL POC Glucose (mg/dL) 101 H 136 H 169 H (75-99) mg/dL Calcium (8.4-10.2) mg/dL 08/08/16 08/08/16 08/08/16 Range/Units 04:04 04:04 06:13 WBC 11.0 H (3.8-10.6) k/uL RBC 3.36 L (4.30-5.90) m/uL Hgb 11.1 L (13.0-17.5) gm/dL Hct 34.4 L (39.0-53.0) % MCV 102.5 H (80.0-100.0) fL Neutrophils # 10.4 H (1.3-7.7) k/uL Lymphocytes # 0.4 L (1.0-4.8) k/uL Chloride 111 H (98-107) mmol/L Carbon Dioxide 21 L (22-30) mmol/L Glucose 134 H (74-99) mg/dL POC Glucose (mg/dL) 124 H (75-99) mg/dL Calcium 7.5 L (8.4-10.2) mg/dL Microbiology - Last 24 Hours (Table) 08/06/16 12:00 Blood Culture - Preliminary Blood No Growth after 24 hours Assessment and Plan Plan: Assessment Bilateral pneumonia, more so on the right than the left, suspect aspiration pneumonia Small right pleural effusion Sepsis Dehydration Tachycardia Hypotension Plan Patient can be downgraded from the intensive care unit to the selective care unit. Medications have been reviewed and will be continued as ordered. Continue with IV antibiotics. Continue IV steroids. Continue with pulmonary hygiene, coughing and deep breathing exercises, and supportive care. Supplemental oxygen to maintain oxygen saturations of 92% or better. Continue nebulizer treatments. GI and DVT prophylaxis. Patient should be reevaluated today for swallow eval. Continue with Miconazole cream to bilateral feet. Patient is a DO NOT RESUSCITATE. We will continue to monitor labs/results and adjust treatment as necessary. Further recommendations pending. I performed an examination of the patient and discussed their management with the nurse practitioner. I have reviewed the nurse practitioner's note and agree with the documented findings and plan of care.
[2016-08-08] MEDS: ASPIRIN 81 MG CHEW PO SCH (11:17)
--- NOTE | 2016-08-08 11:53 | P.PN ---
Subjective Principal diagnosis: Bilateral pneumonia Patient is a 66-year-old male, patient of Dr. Jax Callaway in the outpatient setting, with medical history significant for Down syndrome, bowel obstruction, esophageal stenosis requiring dilatation, dysphasia, and pneumonia. Patient presented to the emergency department with chief complaint of decreased oral intake, cough, and generalized weakness. Admission workup with evidence of dehydration, multilobar pneumonia, and severe sepsis. Patient was fluid resuscitated with 2.5 L of normal saline in the emergency department and started on IV antibiotics in form of Levaquin and Zosyn. Patient was admitted to the intensive care unit with consult to Dr. Lynne for pulmonary and ICU management. Patient is evaluated in the intensive care unit with brother at bedside. Patient is nonverbal. Per nurse, patient has a nonproductive, weak cough with inability to bring up much sputum. Patient is currently on 5 L nasal cannula with oxygen saturation of 88%. Blood pressure systolic in the high 80s to low 90s throughout the night. Urine output adequate. White count decreased to 15.1. Hemoglobin decreased to 12.2. Lactic acid decreased to 2.3 from 3.3 on admission. 08/08/2016: Patient is evaluated at bedside where he is currently sleeping. Patient's respiratory status has improved overnight and his currently on 2 L nasal cannula with oxygen saturation are 97%. Patient has not required any vasopressor support. Patient has been evaluated by speech pathologist who is recommending patient be fed pured diet with water only as patient is still very high risk for aspiration. Family has declined PEG tube. White count has decreased to 11.0. Hemoglobin decreased to 11.1. Urine output adequate. Chest x-ray with evidence of bilateral consolidation worse on the right than the left essentially unchanged from yesterday. Possible degree of associated heart failure. Objective - Vital Signs Vital signs: Vital Signs Temp 97.1 F L 08/08/16 08:00 Pulse 51 L 08/08/16 11:00 Resp 20 08/08/16 11:00 BP 115/60 08/08/16 11:00 Pulse Ox 95 08/08/16 11:00 Intake & Output 08/07/16 08/08/16 08/08/16 18:59 06:59 18:59 Intake Total 1637.5 1237.5 510 Output Total 1030 882 140 Balance 607.5 355.5 370 Weight 49 kg 51.5 kg Intake: IV 987.5 1237.5 510 Piperacillin-Tazobactam 3 87.5 37.5 100 .375 gm In Dextrose/Water 1 50ml.bag @ 12.5 mls/hr IVPB Q8HR [facility] Rx#: [id number] Sodium Chloride 0.9% 1, 900 1200 410 000 ml @ 100 mls/hr IV . Q10H [facility] Rx#:[id number] Intake, IV Titration 650 Amount Levofloxacin 250Mg-D5w 50 Pmx 250 mg In Dextrose/ Water 1 50ml.bag @ 50 mls /hr IVPB Q24H [facility] Rx#: [id number] Magnesium Sulfate-D5w Pmx 100 1 gm In Dextrose/Water 1 100ml.bag @ 100 mls/hr IVPB Q1H [facility] Rx#: [id number] Sodium Chloride 0.9% 500 500 ml @ 999 mls/hr IV .Q31M [facility] Rx#:[id number] Output: Urine 1030 882 140 Other: Voiding Method Indwelling Catheter Indwelling Catheter Indwelling Catheter - Exam GENERAL: Pt sleeping, awakes to verbal stimuli, nonverbal, appears in no acute distress. HEAD: Atraumatic, normocephalic. EYES: Pupils equal, round, and reactive to light, sclera anicteric, conjunctiva are normal. ENT: Moist mucous membranes. NECK:Supple without lymphadenopathy or JVD. Neck midline. LUNGS: Breath sounds with coarse rhonchi and crackles to auscultation bilaterally. Cough week, congested. HEART: Heart S1, S2, no S3 or S4. Regular rate and rhythm. No murmurs, rubs or gallops. ABDOMEN: Soft, nontender, nondistended, normoactive bowel sounds. No guarding, no rebound. No masses or organomegaly appreciated. EXTREMITIES: Palpable peripheral pulses. No edema. NEUROLOGICAL: Pt awake and alert. Nonverbal. Moves all 4 extremities. PSYCH: Calm. SKIN: Warm, dry. - Labs CBC & Chem 7: 08/08/16 04:04 08/08/16 04:04 Labs: Abnormal Lab Results - Last 24 Hours (Table) 08/07/16 08/07/16 08/07/16 Range/Units 12:09 17:38 23:55 WBC (3.8-10.6) k/uL RBC (4.30-5.90) m/uL Hgb (13.0-17.5) gm/dL Hct (39.0-53.0) % MCV (80.0-100.0) fL Neutrophils # (1.3-7.7) k/uL Lymphocytes # (1.0-4.8) k/uL Chloride (98-107) mmol/L Carbon Dioxide (22-30) mmol/L Glucose (74-99) mg/dL POC Glucose (mg/dL) 101 H 136 H 169 H (75-99) mg/dL Calcium (8.4-10.2) mg/dL 08/08/16 08/08/16 08/08/16 Range/Units 04:04 04:04 06:13 WBC 11.0 H (3.8-10.6) k/uL RBC 3.36 L (4.30-5.90) m/uL Hgb 11.1 L (13.0-17.5) gm/dL Hct 34.4 L (39.0-53.0) % MCV 102.5 H (80.0-100.0) fL Neutrophils # 10.4 H (1.3-7.7) k/uL Lymphocytes # 0.4 L (1.0-4.8) k/uL Chloride 111 H (98-107) mmol/L Carbon Dioxide 21 L (22-30) mmol/L Glucose 134 H (74-99) mg/dL POC Glucose (mg/dL) 124 H (75-99) mg/dL Calcium 7.5 L (8.4-10.2) mg/dL Microbiology - Last 24 Hours (Table) 08/06/16 12:00 Blood Culture - Preliminary Blood No Growth after 24 hours Assessment and Plan Plan: Impression and plan: 1. Severe sepsis suspect secondary to multilobar pneumonia, suspect aspiration. Pulmonary service on consult, recommendations noted. Continue IV antibiotics, supplemental oxygen to keep saturation greater than 92%, aspiration precautions, nebulized updraft treatments, systemic steroids, and IV hydration. 2. Anemia, suspect dilutional. 3. Dehydration, present on admission, resolved. 4. Dysphagia with history of esophageal stricture with previous dilatation. Speech therapy has evaluated patient and is currently recommending pured diet with water only. Family has declined PEG tube. Maintain aspiration precautions. 5. History of Down syndrome. Continue to monitor patient. Continue current medications. Continue GI and DVT prophylaxis. Continue to follow with pulmonary service. Patient is stable to move to selective care unit. Repeat CBC and BMP in a.m. Patient is a DO NOT RESUSCITATE. The above impression and plan have been discussed and directed by Dr. Callaway. Jalen BRASWELL-C acting as scribe for Dr. Callaway.
[2016-08-08 13:34] LABS: Glucose,Whole Blood 150 mg/dL (75-99)
[2016-08-08] MEDS: LEVOFLOXACIN 250MG-D5W PMX 250 MG in DEXTROSE/WATER 1 50ML.BAG IVPB SCH (14:55)
[2016-08-08 17:38] LABS: Glucose,Whole Blood 120 mg/dL (75-99)
[2016-08-08 20:30] LABS: Glucose,Whole Blood 120 mg/dL (75-99)
[2016-08-09] MEDS: HEPARIN SODIUM,PORCINE 5,000 UNIT/ML 1 ML VIAL SQ SCH ×4 (01:00→23:55)
[2016-08-09] MEDS: methylPREDNISolone SOD SUCCI 40 MG/ML 1 ML VIAL IV SCH ×4 (01:01→23:55)
[2016-08-09] MEDS: PIPERACILLIN-TAZOBACTAM 3.375 GM in DEXTROSE/WATER 1 50ML.BAG IVPB SCH ×4 (01:06→23:55)
[2016-08-09 02:27] LABS: Glucose,Whole Blood 118 mg/dL (75-99)
[2016-08-09] MEDS: SODIUM CHLORIDE 0.9% 1,000 ML IV SCH ×3 (04:33→20:21)
[2016-08-09 05:59] LABS: Glucose,Whole Blood 122 mg/dL (75-99)
[2016-08-09 06:37] LABS: Basophils % (A) 0 %; CH 33.4; CHCM 32.2; Eosinophils % (A) 0 %; HCT 34.2 % (39.0-53.0); HDW 2.36; HGB 11.6 gm/dL (13.0-17.5); Luc # (Auto) 0.05; Luc % (Auto) 0; Lymphocytes # (A) 0.5 k/uL (1.0-4.8); Lymphocytes % (A) 4 %; MCH 35.2 pg (25.0-35.0); MCHC 33.8 g/dL (31.0-37.0); MCV 104.2 fL (80.0-100.0); Macrocytosis Moderate; Mean Platelet Volume 8.2; Monocytes # (A) 0.2 k/uL (0-1.0); Monocytes % (A) 2 %; Neutrophils # (A) 12.5 k/uL (1.3-7.7); Neutrophils % (A) 94 %; RBC 3.28 m/uL (4.30-5.90); RDW 15.1 % (11.5-15.5); WBC 13.3 k/uL (3.8-10.6); WBC (Perox) 14.33
[2016-08-09 06:52] LABS: Anion Gap 7 mmol/L; Blood Urea Nitrogen 21 mg/dL (9-20); Calcium 7.8 mg/dL (8.4-10.2); Carbon Dioxide 21 mmol/L (22-30); Chloride 114 mmol/L (98-107); Glucose 125 mg/dL (74-99); Non-African American GFR(MDRD) >60 (>60 ml/min/1.73 sqM); Phosphorous 2.8 mg/dL (2.5-4.5); Potassium 3.6 mmol/L (3.5-5.1); Sodium 142 mmol/L (137-145)
[2016-08-09] MEDS: BUDESONIDE 1 MG/2 ML NEBU INHALATION SCH ×2 (08:35→20:46)
[2016-08-09] MEDS: IPRATROPIUM-ALBUTEROL 3 ML NEB INHALATION SCH ×4 (08:35→20:46)
--- NOTE | 2016-08-09 08:35 | XR ---
EXAMINATION TYPE: XR chest 1V DATE OF EXAM: 08/09/2016 7:28 AM HISTORY: Shortness of breath. COMPARISON: 08/08/2016 TECHNIQUE: Single view of the chest is submitted. FINDINGS: Demonstrated are scattered senescent parenchymal change. Progressive bilateral airspace infiltrates left lower lobe and right mid and right upper lobes. Bilat eral pleural effusions increasing on the right. Underlying pulmonary venous congestion. The heart is stable. Hilar and mediastinal structures are within normal limits. Degenerative changes are seen of the dorsal spine. IMPRESSION: 1. Progressive airspace disease and pleural effusions.
--- NOTE | 2016-08-09 11:26 | P.PN ---
Subjective This is a 66-year-old male patient being evaluated and examined in the ICU today. This patient is well-known to our services. This patient was brought into the emergency room for generalized malaise, weakness, decreased oral intake , cough and shortness of breath. This patient does have a history of Down's syndrome and is known to get pneumonia quite frequently. He is also known to have a history of esophageal stenosis in the past which has required esophageal dilation, ultimately he has continued to have some difficulty with swallowing. Speech therapist tried to perform a swallow evaluation with the patient however he is still congested at this time, therefore she cannot say he passed or he failed due to his constant congestion. Patient does not have the ability to cough up his secretions on his own, cough remains weak. The cough continues to sound very congested and productive. Suction is hooked up at bedside, nurse continues to try to help the patient bring out the sputum however the patient continues to bite down on the younker. Upon examination the patient is resting up in bed on 2 L via nasal cannula which is a decrease and supplemental oxygen from 5 L yesterday. Patient did have one hypotensive episode yesterday which was resolved with a 500 mL bolus over one hour. Patient continues to have a weak congested cough. He is afebrile this morning, and had no overnight issues. Patient is hemodynamically stable at this time. Patient has had good urine output. 08/09/16 patient is being evaluated and examined today on the sixth floor. Patient continues on 2 L of supplemental oxygen via nasal cannula. Patient was evaluated by speech therapist recommended a fed pured diet. Family declines a PEG tube. Chest x-ray shows progressive airspace disease and pleural effusions. Patient continues to have an inadequate week cough. Objective - Vital Signs Vital signs: Vital Signs Temp 97.2 F L 08/09/16 08:00 Pulse 51 L 08/09/16 08:00 Resp 18 08/09/16 04:00 BP 119/64 08/09/16 08:00 Pulse Ox 93 L 08/09/16 08:00 Intake & Output 08/08/16 08/09/16 08/09/16 18:59 06:59 18:59 Intake Total 1210 1200 Output Total 402 Balance 808 1200 Weight 51.5 kg Intake: IV 1160 1200 Piperacillin-Tazobactam 3 100 .375 gm In Dextrose/Water 1 50ml.bag @ 12.5 mls/hr IVPB Q8HR [facility] Rx#: [id number] Sodium Chloride 0.9% 1, 1060 1200 000 ml @ 100 mls/hr IV . Q10H [facility] Rx#:[id number] Intake, IV Titration 50 Amount Levofloxacin 250Mg-D5w 50 Pmx 250 mg In Dextrose/ Water 1 50ml.bag @ 50 mls /hr IVPB Q24H [facility] Rx#: [id number] Output: Urine 402 Other: Voiding Method Indwelling Catheter Diaper - Exam GENERAL EXAM: Alert, nonverbal, comfortable in no apparent distress. HEAD: Normocephalic. EYES: Normal reaction of pupils, equal size. NOSE: Clear with pink turbinates. THROAT: No erythema or exudates. NECK: No masses, no JVD. CHEST: No chest wall deformity. LUNGS: Lung sounds course and congested throughout, bilateral rhonchi and wheezes scattered throughout. Bases diminished CVS: S1 and S2 normal with no audible mumurs, regular rhythm. ABDOMEN: No hepatosplenomegaly, normal bowel sounds, no guarding or rigidity. EXTREMITIES: No edema noted, pedal pulses palpable. SKIN: Bilateral erythema noted to feet CENTRAL NERVOUS SYSTEM: No focal deficits, tone is normal in all 4 extremities. - Labs CBC & Chem 7: 08/09/16 06:10 08/09/16 06:10 Labs: Abnormal Lab Results - Last 24 Hours (Table) 08/08/16 08/08/16 08/08/16 Range/Units 13:33 17:36 20:28 WBC (3.8-10.6) k/uL RBC (4.30-5.90) m/uL Hgb (13.0-17.5) gm/dL Hct (39.0-53.0) % MCV (80.0-100.0) fL MCH (25.0-35.0) pg Neutrophils # (1.3-7.7) k/uL Lymphocytes # (1.0-4.8) k/uL Chloride (98-107) mmol/L Carbon Dioxide (22-30) mmol/L BUN (9-20) mg/dL Glucose (74-99) mg/dL POC Glucose (mg/dL) 150 H 120 H 120 H (75-99) mg/dL Calcium (8.4-10.2) mg/dL 08/09/16 08/09/16 08/09/16 Range/Units 02:15 05:57 06:10 WBC 13.3 H (3.8-10.6) k/uL RBC 3.28 L (4.30-5.90) m/uL Hgb 11.6 L (13.0-17.5) gm/dL Hct 34.2 L (39.0-53.0) % MCV 104.2 H (80.0-100.0) fL MCH 35.2 H (25.0-35.0) pg Neutrophils # 12.5 H (1.3-7.7) k/uL Lymphocytes # 0.5 L (1.0-4.8) k/uL Chloride (98-107) mmol/L Carbon Dioxide (22-30) mmol/L BUN (9-20) mg/dL Glucose (74-99) mg/dL POC Glucose (mg/dL) 118 H 122 H (75-99) mg/dL Calcium (8.4-10.2) mg/dL 08/09/16 Range/Units 06:10 WBC (3.8-10.6) k/uL RBC (4.30-5.90) m/uL Hgb (13.0-17.5) gm/dL Hct (39.0-53.0) % MCV (80.0-100.0) fL MCH (25.0-35.0) pg Neutrophils # (1.3-7.7) k/uL Lymphocytes # (1.0-4.8) k/uL Chloride 114 H (98-107) mmol/L Carbon Dioxide 21 L (22-30) mmol/L BUN 21 H (9-20) mg/dL Glucose 125 H (74-99) mg/dL POC Glucose (mg/dL) (75-99) mg/dL Calcium 7.8 L (8.4-10.2) mg/dL Microbiology - Last 24 Hours (Table) 08/06/16 12:00 Blood Culture - Preliminary Blood No Growth after 48 hours Assessment and Plan Plan: Assessment Bilateral pneumonia, more so on the right than the left, suspect aspiration pneumonia Small right pleural effusion Sepsis Dehydration Tachycardia Hypotension Down syndrome Plan Medications have been reviewed and will be continued as ordered. Patient could benefit from a bronchoscopy for pulmonary hygiene/toileting however this patient carries a high risk of respiratory failure. We will update the family on this recommendation and see how they would like to go forward with treatment or not. Continue with IV antibiotics. Continue IV steroids. Continue with pulmonary hygiene, coughing and deep breathing exercises, and supportive care. Supplemental oxygen to maintain oxygen saturations of 92% or better. Continue nebulizer treatments. GI and DVT prophylaxis. Continue with Miconazole cream to bilateral feet. Patient is a DO NOT RESUSCITATE. We will continue to monitor labs/results and adjust treatment as necessary. Further recommendations pending. I performed an examination of the patient and discussed their management with the nurse practitioner. I have reviewed the nurse practitioner's note and agree with the documented findings and plan of care.
[2016-08-09 12:05] LABS: Glucose,Whole Blood 107 mg/dL (75-99)
[2016-08-09] MEDS: PANTOPRAZOLE 40 MG/10 ML VIAL IVP SCH (12:54)
[2016-08-09] MEDS: ASPIRIN 81 MG CHEW PO SCH (12:54)
[2016-08-09] MEDS: MICONAZOLE NITRATE 2% CREAM 14 GM TUBE TOPICAL SCH ×2 (12:54→20:55)
--- NOTE | 2016-08-09 13:51 | P.PN ---
Subjective Patient is a 66-year-old male, patient of Dr. Jax Callaway in the outpatient setting, with medical history significant for Down syndrome, bowel obstruction, esophageal stenosis requiring dilatation, dysphasia, and pneumonia. Patient presented to the emergency department with chief complaint of decreased oral intake, cough, and generalized weakness. Admission workup with evidence of dehydration, multilobar pneumonia, and severe sepsis. Patient was fluid resuscitated with 2.5 L of normal saline in the emergency department and started on IV antibiotics in form of Levaquin and Zosyn. Patient was admitted to the intensive care unit with consult to Dr. Lynne for pulmonary and ICU management. Patient is evaluated in the intensive care unit with brother at bedside. Patient is nonverbal. Per nurse, patient has a nonproductive, weak cough with inability to bring up much sputum. Patient is currently on 5 L nasal cannula with oxygen saturation of 88%. Blood pressure systolic in the high 80s to low 90s throughout the night. Urine output adequate. White count decreased to 15.1. Hemoglobin decreased to 12.2. Lactic acid decreased to 2.3 from 3.3 on admission. 08/08/2016: Patient is evaluated at bedside where he is currently sleeping. Patient's respiratory status has improved overnight and his currently on 2 L nasal cannula with oxygen saturation are 97%. Patient has not required any vasopressor support. Patient has been evaluated by speech pathologist who is recommending patient be fed pured diet with water only as patient is still very high risk for aspiration. Family has declined PEG tube. White count has decreased to 11.0. Hemoglobin decreased to 11.1. Urine output adequate. Chest x-ray with evidence of bilateral consolidation worse on the right than the left essentially unchanged from yesterday. Possible degree of associated heart failure. 08/09/2016: Patient is evaluated on selective care unit where he was transferred yesterday from the intensive care unit. Patient remains nonverbal but appears in no apparent distress. Patient is currently on room air with oxygen saturation of 93%. Afebrile. White count increased to 13.3. Hemoglobin stable 11.6. Chest x-ray with progressive air space disease and bilateral pleural effusions increasing on the right. Pulmonary service is considering bronchoscopy if family agrees. Objective - Vital Signs Vital signs: Vital Signs Temp 97.2 F L 08/09/16 08:00 Pulse 58 L 08/09/16 12:12 Resp 18 08/09/16 04:00 BP 119/64 08/09/16 08:00 Pulse Ox 93 L 08/09/16 11:57 Intake & Output 08/08/16 08/09/16 08/09/16 18:59 06:59 18:59 Intake Total 1210 1200 Output Total 402 Balance 808 1200 Weight 51.5 kg Intake: IV 1160 1200 Piperacillin-Tazobactam 3 100 .375 gm In Dextrose/Water 1 50ml.bag @ 12.5 mls/hr IVPB Q8HR [facility] Rx#: [id number] Sodium Chloride 0.9% 1, 1060 1200 000 ml @ 100 mls/hr IV . Q10H [facility] Rx#:[id number] Intake, IV Titration 50 Amount Levofloxacin 250Mg-D5w 50 Pmx 250 mg In Dextrose/ Water 1 50ml.bag @ 50 mls /hr IVPB Q24H [facility] Rx#: [id number] Output: Urine 402 Other: Voiding Method Indwelling Catheter Diaper - Exam GENERAL: Pt awake and alert, nonverbal, appears in no acute distress. HEAD: Atraumatic, normocephalic. EYES: Pupils equal, round, and reactive to light, sclera anicteric, conjunctiva are normal. ENT: Moist mucous membranes. NECK:Supple without lymphadenopathy or JVD. Neck midline. LUNGS: Breath sounds diminished with rhonchi and crackles to auscultation bilaterally. Cough week, congested. HEART: Heart S1, S2, no S3 or S4. Regular rate and rhythm. No murmurs, rubs or gallops. ABDOMEN: Soft, nontender, nondistended, normoactive bowel sounds. No guarding, no rebound. No masses or organomegaly appreciated. EXTREMITIES: Palpable peripheral pulses. No edema. NEUROLOGICAL: Pt awake and alert. Nonverbal. Moves all 4 extremities. PSYCH: Calm. SKIN: Warm, dry, bilaterally erythema noted to both feet.. - Labs CBC & Chem 7: 08/09/16 06:10 08/09/16 06:10 Labs: Abnormal Lab Results - Last 24 Hours (Table) 08/08/16 08/08/16 08/09/16 Range/Units 17:36 20:28 02:15 WBC (3.8-10.6) k/uL RBC (4.30-5.90) m/uL Hgb (13.0-17.5) gm/dL Hct (39.0-53.0) % MCV (80.0-100.0) fL MCH (25.0-35.0) pg Neutrophils # (1.3-7.7) k/uL Lymphocytes # (1.0-4.8) k/uL Chloride (98-107) mmol/L Carbon Dioxide (22-30) mmol/L BUN (9-20) mg/dL Glucose (74-99) mg/dL POC Glucose (mg/dL) 120 H 120 H 118 H (75-99) mg/dL Calcium (8.4-10.2) mg/dL 08/09/16 08/09/16 08/09/16 Range/Units 05:57 06:10 06:10 WBC 13.3 H (3.8-10.6) k/uL RBC 3.28 L (4.30-5.90) m/uL Hgb 11.6 L (13.0-17.5) gm/dL Hct 34.2 L (39.0-53.0) % MCV 104.2 H (80.0-100.0) fL MCH 35.2 H (25.0-35.0) pg Neutrophils # 12.5 H (1.3-7.7) k/uL Lymphocytes # 0.5 L (1.0-4.8) k/uL Chloride 114 H (98-107) mmol/L Carbon Dioxide 21 L (22-30) mmol/L BUN 21 H (9-20) mg/dL Glucose 125 H (74-99) mg/dL POC Glucose (mg/dL) 122 H (75-99) mg/dL Calcium 7.8 L (8.4-10.2) mg/dL 08/09/16 Range/Units 11:47 WBC (3.8-10.6) k/uL RBC (4.30-5.90) m/uL Hgb (13.0-17.5) gm/dL Hct (39.0-53.0) % MCV (80.0-100.0) fL MCH (25.0-35.0) pg Neutrophils # (1.3-7.7) k/uL Lymphocytes # (1.0-4.8) k/uL Chloride (98-107) mmol/L Carbon Dioxide (22-30) mmol/L BUN (9-20) mg/dL Glucose (74-99) mg/dL POC Glucose (mg/dL) 107 H (75-99) mg/dL Calcium (8.4-10.2) mg/dL Microbiology - Last 24 Hours (Table) 08/06/16 12:00 Blood Culture - Preliminary Blood No Growth after 48 hours Assessment and Plan Plan: Impression and plan: 1. Severe sepsis suspect secondary to multilobar pneumonia, suspect aspiration. Pulmonary service on consult, recommendations noted. Continue IV antibiotics, supplemental oxygen to keep saturation greater than 92%, aspiration precautions, nebulized updraft treatments, systemic steroids, and IV hydration. Patient is being considered for a bronchoscopy, will await consult from family. 2. Anemia, suspect dilutional. 3. Dehydration, present on admission, resolved. 4. Dysphagia with history of esophageal stricture with previous dilatation. Speech therapy has evaluated patient and is currently recommending pured diet with water only. Family has declined PEG tube. Maintain aspiration precautions. 5. History of Down syndrome. Continue to monitor patient. Continue current medications. Continue GI and DVT prophylaxis. Continue to follow with pulmonary service. Repeat CBC and BMP in a.m. Patient is a DO NOT RESUSCITATE. The above impression and plan have been discussed and directed by Dr. Callaway. Jalen BRASWELL-Fred acting as scribe for Dr. Callaway.
[2016-08-09] MEDS: LEVOFLOXACIN 500MG-D5W PMX 500 MG in DEXTROSE/WATER 1 100ML.BAG IVPB SCH (14:52)
[2016-08-09 17:16] LABS: Glucose,Whole Blood 170 mg/dL (75-99)
[2016-08-09 20:47] LABS: Glucose,Whole Blood 108 mg/dL (75-99)
[2016-08-10 05:25] LABS: Glucose,Whole Blood 172 mg/dL (75-99)
[2016-08-10 07:18] LABS: Glucose,Whole Blood 132 mg/dL (75-99)
[2016-08-10] MEDS: IPRATROPIUM-ALBUTEROL 3 ML NEB INHALATION SCH ×4 (07:53→20:59)
[2016-08-10] MEDS: BUDESONIDE 1 MG/2 ML NEBU INHALATION SCH ×2 (07:53→20:59)
[2016-08-10 08:36] LABS: Basophils % (A) 0 %; CH 33.3; Eosinophils % (A) 0 %; HCT 35.2 % (39.0-53.0); HGB 11.7 gm/dL (13.0-17.5); Luc # (Auto) 0.07; Luc % (Auto) 1; Lymphocytes # (A) 0.5 k/uL (1.0-4.8); Lymphocytes % (A) 6 %; MCH 33.7 pg (25.0-35.0); MCHC 33.2 g/dL (31.0-37.0); MCV 101.4 fL (80.0-100.0); Macrocytosis Slight; Mean Platelet Volume 7.9; Monocytes # (A) 0.2 k/uL (0-1.0); Monocytes % (A) 3 %; Neutrophils # (A) 8.2 k/uL (1.3-7.7); Neutrophils % (A) 91 %; RBC 3.47 m/uL (4.30-5.90); RDW 15.1 % (11.5-15.5); WBC (Perox) 8.93
[2016-08-10] MEDS: PIPERACILLIN-TAZOBACTAM 3.375 GM in DEXTROSE/WATER 1 50ML.BAG IVPB SCH ×2 (08:51→16:11)
[2016-08-10] MEDS: methylPREDNISolone SOD SUCCI 40 MG/ML 1 ML VIAL IV SCH ×2 (08:51→16:11)
[2016-08-10] MEDS: MICONAZOLE NITRATE 2% CREAM 14 GM TUBE TOPICAL SCH ×2 (08:51→21:07)
[2016-08-10] MEDS: PANTOPRAZOLE 40 MG/10 ML VIAL IVP SCH (08:52)
[2016-08-10] MEDS: SODIUM CHLORIDE 0.9% 1,000 ML IV SCH ×2 (08:52→20:52)
[2016-08-10 08:56] VITALS: BMI 22.1
[2016-08-10 09:00] LABS: Anion Gap 7 mmol/L; Blood Urea Nitrogen 16 mg/dL (9-20); Calcium 7.7 mg/dL (8.4-10.2); Carbon Dioxide 24 mmol/L (22-30); Chloride 109 mmol/L (98-107); Glucose 145 mg/dL (74-99); Magnesium 1.8 mg/dL (1.6-2.3); Non-African American GFR(MDRD) >60 (>60 ml/min/1.73 sqM); Phosphorous 2.7 mg/dL (2.5-4.5); Potassium 3.2 mmol/L (3.5-5.1); Sodium 140 mmol/L (137-145)
--- NOTE | 2016-08-10 09:34 | XR ---
EXAMINATION TYPE: XR chest 1V DATE OF EXAM: 08/10/2016 8:13 AM COMPARISON: Prior chest x-ray 09 Aug 2016 HISTORY: Pneumonia TECHNIQUE: Single frontal view of the chest is obtained. FINDINGS: Patient is rotated, there are overlying tubings. Old clavicular fracture is stable. Bone m ineralization is reduced. There is no evident pneumothorax. Bibasilar increased density is present, t here is blunting of the costophrenic angles. Heart may be enlarged. Interstitium is increased. Centra l vascularity appears prominently. IMPRESSION: Correlate for congestive heart failure, pneumonia not excluded.
[2016-08-10] MEDS ORDERED: GLYCOPYRROLATE 0.2 MG/ML 2 ML VIAL ONE (10:02)
[2016-08-10] MEDS ORDERED: LIDOCAINE 1% INJ 10MG/ML (20 ML MDV) ONE (10:02)
[2016-08-10] MEDS ORDERED: IV FLUID CONTINUATION 200 ML IV ONE (10:02)
[2016-08-10] MEDS ORDERED: PROPOFOL 10 MG/ML 20 ML VIAL IV ONE (10:02)
[2016-08-10] MEDS ORDERED: LIDOCAINE 2% INJ 20 MG/ML INTRATRACH ONE (10:14)
[2016-08-10] MEDS ORDERED: ACETYLCYSTEINE 800 MG/4 ML VIAL INHALATION ONE (10:14)
[2016-08-10] MEDS ORDERED: Potassium Replacement Protocol 1 EACH MISC MISCELLANE PRN (10:23)
[2016-08-10] MEDS: HEPARIN SODIUM,PORCINE 5,000 UNIT/ML 1 ML VIAL SQ SCH ×2 (10:51→16:11)
--- NOTE | 2016-08-10 10:56 | PN ---
DATE OF SERVICE: 08/10/2016 Mr. Joshua Nettles is a 66-year-old male with Down's syndrome and a history of recurrent pneumonia. Patient came into the hospital with acute hypoxic respiratory failure, extensive pneumonia. The patient had episodes of intermittent desaturation, has extensive amount of congestion and he has difficulty in expectorating. Due to his mental status, he does not comprehend to expectorate. Requires significant amount of assistance. Patient has been having episodes of intermittent desaturation. At this point of time, decision was being considered for bronchoscopy and pulmonary toilet. I had a detailed discussion with the sister yesterday. She would like to proceed in that regard. Although of note, the patient is a NO CODE, but, however, for the procedure he transiently is being made FULL CODE. Today on examination, he still has congestion and audible wheezing. His blood pressure is 100/50, respiratory rate is 20, heart rate is 94, saturation 90% to 94% on 2 L of oxygen, which is down from 4 L. HEENT EXAMINATION: Otherwise unremarkable. Narrow pharyngeal opening is present. ( ) neck noted. Neck veins are prominent. No bruits present. LUNGS: Bilateral coarse breath sounds, inspiratory, expiratory coarse breath sounds and crackles. HEART: Regular rate and rhythm. S1 and S2 audible. ABDOMEN: Soft. EXTREMITIES: +1 peripheral pulses. NEUROLOGICAL EXAMINATION: Awake. Follows simple commands. Labs reveal white cell count 9000, hemoglobin 11, hematocrit 35, platelet count of 186,000. Sodium 140, potassium 3.2. BUN and creatinine 16 and 0.82. Magnesium 1.8. Phosphorus 2.7. The last chest x-ray performed earlier this morning reviewed and compared with the prior x-ray. The bilateral basal atelectasis and pneumonia is seen with prominent interstitium, congestive heart failure cannot be excluded. IMPRESSION: 1. Bilateral aspiration pneumonia with mixed bacterial gram-negative and unfortunately unable to get the sputum as patient could not follow the recommendation. 2. Small right-sided pleural effusion. 3. Sepsis, associated with pneumonia. 4. Advanced Down syndrome with complications and sequelae. PLAN AND RECOMMENDATION: Medications reviewed. Laboratory data reviewed. Plan is to continue antibiotics. Continue supportive care. Will proceed with bronchoscopy and pulmonary toilet, not only to clean up the area but also obtain adequate samples, antibiotics can be adjusted. Will follow.
--- NOTE | 2016-08-10 11:10 | PCN ---
DATE OF PROCEDURE: PROCEDURE DONE: 1. Bronchoscopy. 2. Bronchoalveolar lavage. INDICATIONS: 1. Aspiration pneumonia. 2. Mucous plugging. 3. Sepsis. OPERATIVE DETAIL: Patient prepared in the usual fashion for anesthesia. Refer to the anesthesia note. Tip of the scope was passed through the right naris. The laryngeal area was approached. Mucous plugging was seen and respiratory secretions were seen, which were clean. Of note that both vocal cords were abducted and they were not moving very well. The tip of the scope passed beyond the vocal cords into the trachea. Extensive mucous plugging was seen. The Mucomyst was installed and both lobes pulmonary toilet was performed. BAL was performed subsequently in the left lower lobe and right lower lobe. Bronchopulmonary segment on the right side as well as the left side were inspected. No endobronchial mass or lesion was seen; however, generalized mucosal edema, erythema and mucous plugging was seen, which was ( ) infection. Patient tolerated the procedure well. No complication noted. FINAL DIAGNOSES: 1. Bilateral pneumonia. 2. 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 3. As above sepsis.
[2016-08-10] MEDS: POTASSIUM CHLORIDE ER 20 MEQ TAB.ER PO SCH ×2 (11:26→14:23)
[2016-08-10] MEDS: ASPIRIN 81 MG CHEW PO SCH (11:26)
[2016-08-10 12:10] LABS: Glucose,Whole Blood 144 mg/dL (75-99)
--- NOTE | 2016-08-10 12:14 | P.PN ---
Subjective Principal diagnosis: Bilateral pneumonia Patient is a 66-year-old male, patient of Dr. Jax Callaway in the outpatient setting, with medical history significant for Down syndrome, bowel obstruction, esophageal stenosis requiring dilatation, dysphasia, and pneumonia. Patient presented to the emergency department with chief complaint of decreased oral intake, cough, and generalized weakness. Admission workup with evidence of dehydration, multilobar pneumonia, and severe sepsis. Patient was fluid resuscitated with 2.5 L of normal saline in the emergency department and started on IV antibiotics in form of Levaquin and Zosyn. Patient was admitted to the intensive care unit with consult to Dr. Lynne for pulmonary and ICU management. Patient is evaluated in the intensive care unit with brother at bedside. Patient is nonverbal. Per nurse, patient has a nonproductive, weak cough with inability to bring up much sputum. Patient is currently on 5 L nasal cannula with oxygen saturation of 88%. Blood pressure systolic in the high 80s to low 90s throughout the night. Urine output adequate. White count decreased to 15.1. Hemoglobin decreased to 12.2. Lactic acid decreased to 2.3 from 3.3 on admission. 08/08/2016: Patient is evaluated at bedside where he is currently sleeping. Patient's respiratory status has improved overnight and his currently on 2 L nasal cannula with oxygen saturation are 97%. Patient has not required any vasopressor support. Patient has been evaluated by speech pathologist who is recommending patient be fed pured diet with water only as patient is still very high risk for aspiration. Family has declined PEG tube. White count has decreased to 11.0. Hemoglobin decreased to 11.1. Urine output adequate. Chest x-ray with evidence of bilateral consolidation worse on the right than the left essentially unchanged from yesterday. Possible degree of associated heart failure. 08/09/2016: Patient is evaluated on selective care unit where he was transferred yesterday from the intensive care unit. Patient remains nonverbal but appears in no apparent distress. Patient is currently on room air with oxygen saturation of 93%. Afebrile. White count increased to 13.3. Hemoglobin stable 11.6. Chest x-ray with progressive air space disease and bilateral pleural effusions increasing on the right. Pulmonary service is considering bronchoscopy if family agrees. 08/10/2016: Patient is evaluated on the fourth floor where he was transferred from selective care unit this morning. Patient is status post bronchoscopy with bronchoalveolar lavage. Per operative report, extensive mucus plugging was observed without any mass lesion. Both vocal cords were abducted and not moving very well again per operative report with possible bilateral vocal cord paralysis. Patient tolerated procedure well. Currently in no acute distress. Oxygen saturation 94% on 2 L nasal cannula. No fevers. White count decreased to 9. Hemoglobin stable at 11.7. Potassium 3.2. Patient is urinating without difficulty and has recorded bowel movements. Objective - Vital Signs Vital signs: Vital Signs Temp 98.6 F 08/10/16 07:00 Pulse 76 08/10/16 11:32 Resp 16 08/10/16 07:00 BP 142/75 08/10/16 07:00 Pulse Ox 94 L 08/10/16 07:00 Intake & Output 08/09/16 08/10/16 08/10/16 18:59 06:59 18:59 Intake Total 1327 200 50 Output Total 1 Balance 1326 200 50 Weight 51.5 kg Intake: IV 850 50 Piperacillin-Tazobactam 3 50 .375 gm In Dextrose/Water 1 50ml.bag @ 12.5 mls/hr IVPB Q8HR [facility] Rx#: [id number] Sodium Chloride 0.9% 1, 800 000 ml @ 100 mls/hr IV . Q10H [facility] Rx#:[id number] Oral 477 200 Output: Stool 1 Other: Voiding Method Diaper Diaper Toilet Diaper # Voids 1 4 # Bowel Movements 1 1 - Exam GENERAL: Pt awake and alert, nonverbal, appears in no acute distress. HEAD: Atraumatic, normocephalic. EYES: Pupils equal, round, and reactive to light, sclera anicteric, conjunctiva are normal. ENT: Moist mucous membranes. NECK:Supple without lymphadenopathy or JVD. Neck midline. LUNGS: Breath sounds essentially clear to auscultation bilaterally. HEART: Heart S1, S2, no S3 or S4. Regular rate and rhythm. No murmurs, rubs or gallops. ABDOMEN: Soft, nontender, nondistended, normoactive bowel sounds. No guarding, no rebound. No masses or organomegaly appreciated. EXTREMITIES: Palpable peripheral pulses. No edema. NEUROLOGICAL: Pt awake and alert. Nonverbal. Moves all 4 extremities. PSYCH: Calm. SKIN: Warm, dry, bilaterally erythema noted to both feet. - Labs CBC & Chem 7: 08/10/16 07:33 08/10/16 07:33 Labs: Abnormal Lab Results - Last 24 Hours (Table) 08/09/16 08/09/16 08/09/16 Range/Units 11:47 17:09 20:42 RBC (4.30-5.90) m/uL Hgb (13.0-17.5) gm/dL Hct (39.0-53.0) % MCV (80.0-100.0) fL Neutrophils # (1.3-7.7) k/uL Lymphocytes # (1.0-4.8) k/uL Potassium (3.5-5.1) mmol/L Chloride (98-107) mmol/L Glucose (74-99) mg/dL POC Glucose (mg/dL) 107 H 170 H 108 H (75-99) mg/dL Calcium (8.4-10.2) mg/dL 08/10/16 08/10/16 08/10/16 Range/Units 05:22 07:04 07:33 RBC 3.47 L (4.30-5.90) m/uL Hgb 11.7 L (13.0-17.5) gm/dL Hct 35.2 L (39.0-53.0) % MCV 101.4 H (80.0-100.0) fL Neutrophils # 8.2 H (1.3-7.7) k/uL Lymphocytes # 0.5 L (1.0-4.8) k/uL Potassium (3.5-5.1) mmol/L Chloride (98-107) mmol/L Glucose (74-99) mg/dL POC Glucose (mg/dL) 172 H 132 H (75-99) mg/dL Calcium (8.4-10.2) mg/dL 08/10/16 Range/Units 07:33 RBC (4.30-5.90) m/uL Hgb (13.0-17.5) gm/dL Hct (39.0-53.0) % MCV (80.0-100.0) fL Neutrophils # (1.3-7.7) k/uL Lymphocytes # (1.0-4.8) k/uL Potassium 3.2 L (3.5-5.1) mmol/L Chloride 109 H (98-107) mmol/L Glucose 145 H (74-99) mg/dL POC Glucose (mg/dL) (75-99) mg/dL Calcium 7.7 L (8.4-10.2) mg/dL Microbiology - Last 24 Hours (Table) 08/06/16 12:00 Blood Culture - Preliminary Blood No Growth after 72 hours Assessment and Plan Plan: Impression and plan: 1. Severe sepsis suspect secondary to multilobar pneumonia, suspect aspiration status post bronchoscopy with bronchial lavage on 08/10/2016. Pulmonary service on consult, recommendations noted. Continue IV antibiotics, supplemental oxygen to keep saturation greater than 92%, aspiration precautions , nebulized updraft treatments, systemic steroids, and IV hydration. 2. Anemia, suspect dilutional. 3. Dehydration, present on admission, resolved. 4. Dysphagia with history of esophageal stricture with previous dilatation. Speech therapy has evaluated patient and is currently recommending pured diet with water only. Family has declined PEG tube. Maintain aspiration precautions. 5. History of Down syndrome. Continue to monitor patient. Continue current medications. Replace electrolytes per protocol. Continue GI and DVT prophylaxis. Continue to follow with pulmonary service. Repeat CBC and BMP in a.m. Patient is a DO NOT RESUSCITATE. The above impression and plan have been discussed and directed by Dr. Callaway. Jalen BRASWELL-Fred acting as scribe for Dr. Callaway.
[2016-08-10] MEDS: LEVOFLOXACIN 500MG-D5W PMX 500 MG in DEXTROSE/WATER 1 100ML.BAG IVPB SCH (14:23)
[2016-08-10 16:51] LABS: Glucose,Whole Blood 141 mg/dL (75-99)
[2016-08-10 20:52] LABS: Glucose,Whole Blood 231 mg/dL (75-99)
[2016-08-11] MEDS: methylPREDNISolone SOD SUCCI 40 MG/ML 1 ML VIAL IV SCH ×4 (01:23→23:28)
[2016-08-11] MEDS: HEPARIN SODIUM,PORCINE 5,000 UNIT/ML 1 ML VIAL SQ SCH ×4 (01:23→23:28)
[2016-08-11] MEDS: PIPERACILLIN-TAZOBACTAM 3.375 GM in DEXTROSE/WATER 1 50ML.BAG IVPB SCH ×4 (01:23→23:27)
[2016-08-11] MEDS: SODIUM CHLORIDE 0.9% 1,000 ML IV SCH ×4 (06:31→20:49)
[2016-08-11 07:34] LABS: Glucose,Whole Blood 133 mg/dL (75-99)
[2016-08-11] MEDS: BUDESONIDE 1 MG/2 ML NEBU INHALATION SCH ×2 (07:54→19:00)
[2016-08-11] MEDS: IPRATROPIUM-ALBUTEROL 3 ML NEB INHALATION SCH ×4 (07:54→19:00)
[2016-08-11 08:00] LABS: Basophils % (A) 0 %; CH 33.1; CHCM 33.2; Eosinophils % (A) 0 %; HCT 39.3 % (39.0-53.0); HDW 2.39; HGB 12.9 gm/dL (13.0-17.5); Luc # (Auto) 0.09; Luc % (Auto) 1; Lymphocytes # (A) 0.4 k/uL (1.0-4.8); Lymphocytes % (A) 6 %; MCH 32.7 pg (25.0-35.0); MCHC 32.7 g/dL (31.0-37.0); Macrocytosis Slight; Mean Platelet Volume 7.8; Monocytes # (A) 0.3 k/uL (0-1.0); Monocytes % (A) 5 %; Neutrophils # (A) 5.9 k/uL (1.3-7.7); Neutrophils % (A) 87 %; RBC 3.93 m/uL (4.30-5.90); RDW 14.9 % (11.5-15.5); WBC 6.8 k/uL (3.8-10.6); WBC (Perox) 6.99
[2016-08-11 08:36] LABS: Anion Gap 5 mmol/L; Blood Urea Nitrogen 11 mg/dL (9-20); Calcium 7.8 mg/dL (8.4-10.2); Carbon Dioxide 28 mmol/L (22-30); Chloride 102 mmol/L (98-107); Glucose 147 mg/dL (74-99); Magnesium 1.7 mg/dL (1.6-2.3); Non-African American GFR(MDRD) >60 (>60 ml/min/1.73 sqM); Phosphorous 3.1 mg/dL (2.5-4.5); Potassium 3.4 mmol/L (3.5-5.1); Sodium 135 mmol/L (137-145)
[2016-08-11] MEDS: MICONAZOLE NITRATE 2% CREAM 14 GM TUBE TOPICAL SCH ×2 (08:36→20:46)
[2016-08-11] MEDS: ASPIRIN 81 MG CHEW PO SCH (08:36)
[2016-08-11] MEDS: PANTOPRAZOLE 40 MG/10 ML VIAL IVP SCH (08:36)
[2016-08-11 12:01] LABS: Glucose,Whole Blood 132 mg/dL (75-99)
[2016-08-11] MEDS: LEVOFLOXACIN 500MG-D5W PMX 500 MG in DEXTROSE/WATER 1 100ML.BAG IVPB SCH (15:46)
--- NOTE | 2016-08-11 17:18 | PN ---
Joshua Nettles who was seen, evaluated, examined on fourth floor. Patient is status post bronchoscopy and pulmonary toilet. He has been doing better in terms of breathing. 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 Further discussed with the family. It appears that patient has been unable to speak for the last several years. His last set of vitals include blood pressure is 145/68, respiratory rate 18, pulse 59, temperature 98, saturation 92%. HEENT: Unremarkable. NECK: Supple. LUNGS: Good air entry bilaterally. HEART: Regular rate and rhythm. S1 and S2 audible. ABDOMEN: Soft. No rebound or rigidity. EXTREMITIES: +1. NEUROLOGICAL EXAMINATION: Otherwise, awake and alert. Labs reviewed. Sodium 135, potassium 3.4. Glucose is 147. Current medications reviewed and include DuoNeb unit dose updraft 4 times a day as needed, aspirin 81 mg daily, Pulmicort 2 times a day, heparin 5000 units subcu q.8 hourly, Levaquin 500 mg IV piggyback daily, Solu-Medrol 40 q.8. Also on miconazole, K, mag, phos replacement protocol, Protonix and Zosyn, IV fluid 100 mL an hour. Laboratory data reviewed. White cell count is down to 6800, hemoglobin 12, hematocrit 39, platelet count of 230,000. Sodium 135, potassium 3.4. BUN which is slowly coming up. BUN and creatinine is 11 and 0.75. IMPRESSION: 1. Bilateral aspiration pneumonia. 2. Acute hypoxic respiratory failure, improved significantly. 3. Small right-sided pleural effusion. 4. Advanced Down syndrome. 5. Bilateral vocal cord paresis. Plan is to continue antibiotics. Continue supportive care. Monitor aspiration precaution. Keep height of the bed elevated. Maintain patient on DVT and peptic ulcer disease prophylaxis. Overall, jail prognosis is very poor. Continue supportive care. However for now, we will follow.
[2016-08-11 17:24] LABS: Glucose,Whole Blood 162 mg/dL (75-99)
[2016-08-11 20:51] LABS: Glucose,Whole Blood 152 mg/dL (75-99)
[2016-08-12 07:34] LABS: Glucose,Whole Blood 129 mg/dL (75-99)
[2016-08-12] MEDS: PANTOPRAZOLE SODIUM 40 MG GRANULE PKT PO SCH (07:48)
[2016-08-12] MEDS: methylPREDNISolone SOD SUCCI 40 MG/ML 1 ML VIAL IV SCH ×2 (07:49→16:45)
[2016-08-12] MEDS: HEPARIN SODIUM,PORCINE 5,000 UNIT/ML 1 ML VIAL SQ SCH ×2 (07:49→16:43)
[2016-08-12] MEDS: ASPIRIN 81 MG CHEW PO SCH (07:49)
[2016-08-12] MEDS: MICONAZOLE NITRATE 2% CREAM 14 GM TUBE TOPICAL SCH ×2 (07:49→20:10)
[2016-08-12] MEDS: BUDESONIDE 1 MG/2 ML NEBU INHALATION SCH ×2 (07:50→19:24)
[2016-08-12] MEDS: IPRATROPIUM-ALBUTEROL 3 ML NEB INHALATION SCH ×4 (07:50→19:24)
[2016-08-12] MEDS: PIPERACILLIN-TAZOBACTAM 3.375 GM in DEXTROSE/WATER 1 50ML.BAG IVPB SCH ×2 (08:06→18:56)
[2016-08-12 08:29] LABS: Basophils % (A) 0 %; CH 33.7; CHCM 33.5; Eosinophils % (A) 0 %; HCT 39.2 % (39.0-53.0); HDW 2.26; HGB 12.7 gm/dL (13.0-17.5); Luc % (Auto) 2; Lymphocytes # (A) 0.6 k/uL (1.0-4.8); Lymphocytes % (A) 9 %; MCH 32.8 pg (25.0-35.0); MCHC 32.5 g/dL (31.0-37.0); Macrocytosis Slight; Mean Platelet Volume 7.9; Monocytes # (A) 0.4 k/uL (0-1.0); Monocytes % (A) 6 %; Neutrophils # (A) 5.7 k/uL (1.3-7.7); Neutrophils % (A) 84 %; RBC 3.88 m/uL (4.30-5.90); RDW 15.3 % (11.5-15.5); WBC 6.7 k/uL (3.8-10.6); WBC (Perox) 6.94
[2016-08-12 08:35] LABS: Anion Gap 6 mmol/L; Blood Urea Nitrogen 16 mg/dL (9-20); Carbon Dioxide 30 mmol/L (22-30); Chloride 101 mmol/L (98-107); Glucose 127 mg/dL (74-99); Non-African American GFR(MDRD) >60 (>60 ml/min/1.73 sqM); Potassium 3.4 mmol/L (3.5-5.1); Sodium 137 mmol/L (137-145)
--- NOTE | 2016-08-12 09:52 | PN ---
DATE OF SERVICE: 08/11/2016 I am covering for Dr. Callaway. This 66-year-old gentleman who was admitted multiple medical problems, also had bilateral aspiration pneumonia. The patient's sensorium has improved to baseline according to the family. The patient is on IV antibiotics. Pulmonary, Dr. Lynne, is following the patient closely. Aspiration precautions are being continued. PAST MEDICAL HISTORY: Reviewed. REVIEW OF SYSTEMS: Could not be taken because of baseline mental status. Current medications are reviewed and include: 1. DuoNeb q.i.d. and p.r.n. 2. Aspirin 81 mg daily. 3. Pulmicort 1 mg b.i.d. 4. Heparin 5000 subcu every 8. 5. Levaquin 500 mg IV daily. 6. Solu-Medrol 40 mg every 8. 7. Monistat. 8. Replacement protocol. 9. Protonix. 10. Zosyn 3.75 IV every 8. PHYSICAL EXAMINATION: GENERAL: The patient is alert. Nonverbal. Pulse 67, blood pressure 120/61, respirations 16, temperature 97.4, pulse ox 92% on room air. HEENT: Conjunctivae normal. Oral mucosa moist. NECK: Supple. No carotid bruits. No lymph node enlargement. CARDIOVASCULAR: S1 and S2. LUNGS: Breath sounds diminished at the bases. Bilateral scattered rhonchi and crackles. ABDOMEN: Soft, nontender. No mass. EXTREMITIES: No edema of the legs. NERVOUS SYSTEM: Unchanged. LABS: WBC hemoglobin 12.9. Sodium 134, potassium 3.4. ASSESSMENT: 1. Acute bilateral aspiration pneumonia, multilobar, with possible sepsis present on admission. 2. Status post bronchoscopy with bronchial lavage. 3. Anemia, possibly dilutional. 4. Dehydration present on admission, improved. 5. Dysphagia with history of esophageal stricture with previous dilatations. 6. Aspiration precautions. 7. History of Down syndrome. 8. Hyponatremia. 9. Mild hypokalemia. 10. Increased random blood sugar. RECOMMENDATIONS AND DISCUSSION: Recommend to continue current medications, continue with monitoring and symptomatic treatment. Otherwise, at this time, continue with broad spectrum IV antibiotics. Aspiration precautions. We will but down the IV fluids at this time. Continue to monitor. Repeat labs will be ordered. Prognosis guarded. PT, OT evaluation for possible evaluation for possible ECF rehab. Discussed with family at the bedside. Also discussed with the case management team as well as staff. Prognosis guarded. Further recommendations to follow. See orders for further details.
[2016-08-12] MEDS: SODIUM CHLORIDE 0.9% 1,000 ML IV SCH ×2 (12:31→12:32)
[2016-08-12 12:36] LABS: Glucose,Whole Blood 147 mg/dL (75-99)
--- NOTE | 2016-08-12 13:20 | XR ---
EXAMINATION TYPE: XR chest 1V portable DATE OF EXAM: 08/12/2016 COMPARISON: 08/10/2016 HISTORY: Pneumonia TECHNIQUE: Single frontal view of the chest is obtained. FINDINGS: Bilateral airspace disease and pleural effusion greater on the right stable. Patient rotat ed size stable. No pneumothorax. Interstitial prominence noted. Chronic right clavicular fracture see n. IMPRESSION: 1. Bilateral airspace disease and pleural effusion correlate for pneumonia or CHF.
[2016-08-12] MEDS: LEVOFLOXACIN 500MG-D5W PMX 500 MG in DEXTROSE/WATER 1 100ML.BAG IVPB SCH (13:25)
[2016-08-12] MEDS ORDERED: POTASSIUM CHLORIDE 20 MEQ in WATER FOR INJECTION 1 100ML.BAG IVPB SCH (14:00)
--- NOTE | 2016-08-12 14:20 | P.PN ---
Subjective This is a 66-year-old male patient being evaluated and examined in the ICU today. This patient is well-known to our services. This patient was brought into the emergency room for generalized malaise, weakness, decreased oral intake , cough and shortness of breath. This patient does have a history of Down's syndrome and is known to get pneumonia quite frequently. He is also known to have a history of esophageal stenosis in the past which has required esophageal dilation, ultimately he has continued to have some difficulty with swallowing. Speech therapist tried to perform a swallow evaluation with the patient however he is still congested at this time, therefore she cannot say he passed or he failed due to his constant congestion. Patient does not have the ability to cough up his secretions on his own, cough remains weak. The cough continues to sound very congested and productive. Suction is hooked up at bedside, nurse continues to try to help the patient bring out the sputum however the patient continues to bite down on the younker. Upon examination the patient is resting up in bed on 2 L via nasal cannula which is a decrease and supplemental oxygen from 5 L yesterday. Patient did have one hypotensive episode yesterday which was resolved with a 500 mL bolus over one hour. Patient continues to have a weak congested cough. He is afebrile this morning, and had no overnight issues. Patient is hemodynamically stable at this time. Patient has had good urine output. Upon examination the patient is sitting up in bed and appears slightly tired. Oxygen saturations were slightly low at 88% on room air patient was placed on 2 L of oxygen via nasal cannula and his saturations came up to 97%. Patient did eat breakfast however is kind of hesitant to eat lunch. Family at bedside. Objective - Vital Signs Vital signs: Vital Signs Temp 97.7 F 08/12/16 12:55 Pulse 74 08/12/16 12:55 Resp 16 08/12/16 12:55 BP 106/52 08/12/16 12:55 Pulse Ox 92 L 08/12/16 12:55 Intake & Output 08/11/16 08/12/16 08/12/16 18:59 06:59 18:59 Intake Total 118 Output Total 751 300 500 Balance -633 -300 -500 Intake: Oral 118 Output: Urine 750 300 500 Stool 1 Other: Voiding Method Toilet Toilet Diaper Diaper # Voids 2 2 1 # Bowel Movements 0 - Exam GENERAL EXAM: Alert, nonverbal, comfortable in no apparent distress. HEAD: Normocephalic. EYES: Normal reaction of pupils, equal size. NOSE: Clear with pink turbinates. THROAT: No erythema or exudates. NECK: No masses, no JVD. CHEST: No chest wall deformity. LUNGS: Lung sounds course some scattered rhonchi noted. Bases diminished CVS: S1 and S2 normal with no audible mumurs, regular rhythm. ABDOMEN: No hepatosplenomegaly, normal bowel sounds, no guarding or rigidity. EXTREMITIES: No edema noted, pedal pulses palpable. SKIN: Bilateral erythema noted to feet CENTRAL NERVOUS SYSTEM: No focal deficits, tone is normal in all 4 extremities. - Labs CBC & Chem 7: 08/12/16 07:37 08/12/16 07:37 Labs: Abnormal Lab Results - Last 24 Hours (Table) 08/10/16 08/11/16 08/11/16 Range/Units 10:00 17:14 20:49 RBC (4.30-5.90) m/uL Hgb (13.0-17.5) gm/dL MCV (80.0-100.0) fL Lymphocytes # (1.0-4.8) k/uL Potassium (3.5-5.1) mmol/L Glucose (74-99) mg/dL POC Glucose (mg/dL) 162 H 152 H (75-99) mg/dL Calcium (8.4-10.2) mg/dL Viral Test See Below H 08/12/16 08/12/16 08/12/16 Range/Units 07:19 07:37 07:37 RBC 3.88 L (4.30-5.90) m/uL Hgb 12.7 L (13.0-17.5) gm/dL MCV 101.0 H (80.0-100.0) fL Lymphocytes # 0.6 L (1.0-4.8) k/uL Potassium 3.4 L (3.5-5.1) mmol/L Glucose 127 H (74-99) mg/dL POC Glucose (mg/dL) 129 H (75-99) mg/dL Calcium 8.0 L (8.4-10.2) mg/dL Viral Test 08/12/16 Range/Units 12:31 RBC (4.30-5.90) m/uL Hgb (13.0-17.5) gm/dL MCV (80.0-100.0) fL Lymphocytes # (1.0-4.8) k/uL Potassium (3.5-5.1) mmol/L Glucose (74-99) mg/dL POC Glucose (mg/dL) 147 H (75-99) mg/dL Calcium (8.4-10.2) mg/dL Viral Test Microbiology - Last 24 Hours (Table) 08/10/16 10:00 Gram Stain - Final Bronchial Washings - Left Bronchial Washings Culture - Final Yanira albicans 08/10/16 10:00 Acid Fast Bacilli Smear - Final Bronchial Washings - Left Acid Fast Bacilli Culture - Preliminary 08/06/16 12:00 Blood Culture - Preliminary Blood No Growth after 120 hours Assessment and Plan Plan: Assessment Bilateral pneumonia, more so on the right than the left, suspect aspiration pneumonia Acute hypoxic respiratory failure Small right pleural effusion Sepsis Dehydration Tachycardia Hypotension Down syndrome Lateral vocal cord paresis Plan Medications have been reviewed and will be continued as ordered. We will add fluconazole due to the patient's micro-report from bronchoscopy. Patient could benefit from a bronchoscopy for pulmonary hygiene/toileting however this patient carries a high risk of respiratory failure. We will update the family on this recommendation and see how they would like to go forward with treatment or not. Continue with IV antibiotics. Continue IV steroids. Continue with pulmonary hygiene, coughing and deep breathing exercises, and supportive care. Supplemental oxygen to maintain oxygen saturations of 92% or better. Continue nebulizer treatments. GI and DVT prophylaxis. Continue with Miconazole cream to bilateral feet. Patient is a DO NOT RESUSCITATE. We will continue to monitor labs/results and adjust treatment as necessary. Further recommendations pending. I performed an examination of the patient and discussed their management with the nurse practitioner. I have reviewed the nurse practitioner's note and agree with the documented findings and plan of care.
[2016-08-12] MEDS ORDERED: Potassium Replacement Protocol 1 EACH MISC MISCELLANE PRN (14:39)
[2016-08-12] MEDS: POTASSIUM CHLORIDE 20 MEQ, LIDOCAINE 2% INJ 20 MG in SODIUM CHLORIDE 0.9% 100 ML IV SCH ×2 (15:51→20:11)
[2016-08-12 17:17] LABS: Glucose,Whole Blood 145 mg/dL (75-99)
[2016-08-12] MEDS: FLUCONAZOLE IN NACL,ISO-OSM 200 MG in SALINE 1 100ML.BAG IVPB SCH (17:52)
[2016-08-12 20:57] LABS: Glucose,Whole Blood 136 mg/dL (75-99)
[2016-08-13] MEDS: HEPARIN SODIUM,PORCINE 5,000 UNIT/ML 1 ML VIAL SQ SCH ×4 (00:48→23:12)
[2016-08-13] MEDS: methylPREDNISolone SOD SUCCI 40 MG/ML 1 ML VIAL IV SCH ×3 (00:48→21:20)
[2016-08-13] MEDS: PIPERACILLIN-TAZOBACTAM 3.375 GM in DEXTROSE/WATER 1 50ML.BAG IVPB SCH ×4 (00:48→23:12)
[2016-08-13 07:17] LABS: Glucose,Whole Blood 146 mg/dL (75-99)
[2016-08-13] MEDS: BUDESONIDE 1 MG/2 ML NEBU INHALATION SCH ×2 (07:17→20:09)
[2016-08-13] MEDS: IPRATROPIUM-ALBUTEROL 3 ML NEB INHALATION SCH ×4 (07:18→20:09)
[2016-08-13 07:46] LABS: Basophils % (A) 0 %; CH 32.9; CHCM 32.4; Eosinophils % (A) 0 %; HCT 39.5 % (39.0-53.0); HDW 2.22; HGB 12.7 gm/dL (13.0-17.5); Luc # (Auto) 0.06; Luc % (Auto) 1; Lymphocytes # (A) 0.4 k/uL (1.0-4.8); Lymphocytes % (A) 8 %; MCH 32.7 pg (25.0-35.0); MCHC 32.1 g/dL (31.0-37.0); Macrocytosis Slight; Mean Platelet Volume 7.6; Monocytes # (A) 0.2 k/uL (0-1.0); Monocytes % (A) 4 %; Neutrophils # (A) 4.5 k/uL (1.3-7.7); Neutrophils % (A) 87 %; RBC 3.87 m/uL (4.30-5.90); RDW 15.1 % (11.5-15.5); WBC 5.2 k/uL (3.8-10.6); WBC (Perox) 5.16
[2016-08-13 08:04] LABS: Anion Gap 5 mmol/L; Blood Urea Nitrogen 15 mg/dL (9-20); Calcium 8.1 mg/dL (8.4-10.2); Carbon Dioxide 28 mmol/L (22-30); Chloride 103 mmol/L (98-107); Glucose 166 mg/dL (74-99); Non-African American GFR(MDRD) >60 (>60 ml/min/1.73 sqM); Potassium 3.6 mmol/L (3.5-5.1); Sodium 136 mmol/L (137-145)
[2016-08-13] MEDS: MICONAZOLE NITRATE 2% CREAM 14 GM TUBE TOPICAL SCH ×2 (08:22→21:21)
[2016-08-13] MEDS: ASPIRIN 81 MG CHEW PO SCH (08:22)
[2016-08-13] MEDS: PANTOPRAZOLE SODIUM 40 MG GRANULE PKT PO SCH (08:22)
--- NOTE | 2016-08-13 09:39 | PN ---
DATE OF SERVICE: 08/12/2016 I am covering for Dr. Callaway. This 66-year-old gentleman admitted with acute bilateral pneumonia, possibly aspiration, and also has confused at this time. The patient is on broad spectrum IV antibiotics. Pulmonary following the patient closely. The patient is less responsive compared to yesterday, the patient is on aspiration precautions. The patient is basically nonverbal. The patient was hypoxic earlier. Past medical history reviewed. Review of systems could not be taken. Current medications are reviewed and include: 1. DuoNeb q.i.d. and p.r.n. 2. Aspirin 81 mg. 3. Pulmicort 1 mg b.i.d. 4. Levaquin 500 mg daily. 5. Solu-Medrol 40 IV q8. 6. Monistat. 7. Replacement protocols. 8. Narcan. 9. Protonix. 10. Zosyn 3.7 IV q.8. PHYSICAL EXAMINATION: The patient is stuporous. Arousable. Pulse 64, blood pressure 115/52, respiratory rate 22. Temperature 97.3, pulse ox is 94% on room air. HEENT: Conjunctivae normal. Oral mucosa moist. NECK: No jugular venous distention. No carotid bruit. No lymph node enlargement. CARDIOVASCULAR: S1, S2 muffled. No S3, no S4. RESPIRATORY: Breath sounds diminished at the bases. Bilateral scattered rhonchi and crackles. Expiratory wheezing present. ABDOMEN: Soft, nontender. LEGS: No edema. No swelling. CENTRAL NERVOUS SYSTEM: Diffusely weak. LABS: WBC 6.2, hemoglobin 12.7, MCV 101, potassium 3.4. ASSESSMENT: 1. Acute bed aspiration pneumonia, multilobar with possibly gram-negative with sepsis, present on admission. 2. Change in mental status, metabolic encephalopathy, possibly secondary to hypoxia. 3. Status post bronchoscopy with bronchoalveolar lavage with Yanira. 4. Anemia, possibly dilutional. 5. Increased MCV. 6. Dehydration, present on admission, improved. 7. Dysphagia with a history of esophageal stricture and previous dilatation. 8. History of aspiration precaution. 9. History of Down syndrome. 10. Hyponatremia. 11. Mild hypokalemia. 12. Increased random blood sugar. 13. NO CODE, NO CPR, NO VENT. RECOMMENDATIONS AND DISCUSSION: In this 66-year-old gentleman who presented with the multiple complex medical issues, we will monitor the patient closely. Continue the current medications, continue symptomatic treatment. We will continue broad-spectrum IV antibiotics. Otherwise, ensure oxygenation. Continued follow-up with pulmonary. Continue steroids. Monitor blood sugars closely. Guarded prognosis because of multiple complex medical issues. Further recommendations to follow.
[2016-08-13 11:50] LABS: Glucose,Whole Blood 197 mg/dL (75-99)
[2016-08-13] MEDS: LEVOFLOXACIN 500MG-D5W PMX 500 MG in DEXTROSE/WATER 1 100ML.BAG IVPB SCH (13:15)
--- NOTE | 2016-08-13 15:02 | P.PN ---
Subjective This is a 66-year-old male patient being evaluated and examined in the ICU today. This patient is well-known to our services. This patient was brought into the emergency room for generalized malaise, weakness, decreased oral intake , cough and shortness of breath. This patient does have a history of Down's syndrome and is known to get pneumonia quite frequently. He is also known to have a history of esophageal stenosis in the past which has required esophageal dilation, ultimately he has continued to have some difficulty with swallowing. Speech therapist tried to perform a swallow evaluation with the patient however he is still congested at this time, therefore she cannot say he passed or he failed due to his constant congestion. Patient does not have the ability to cough up his secretions on his own, cough remains weak. The cough continues to sound very congested and productive. Suction is hooked up at bedside, nurse continues to try to help the patient bring out the sputum however the patient continues to bite down on the younker. Upon examination the patient is resting up in bed on 2 L via nasal cannula which is a decrease and supplemental oxygen from 5 L yesterday. Patient did have one hypotensive episode yesterday which was resolved with a 500 mL bolus over one hour. Patient continues to have a weak congested cough. He is afebrile this morning, and had no overnight issues. Patient is hemodynamically stable at this time. Patient has had good urine output. Upon examination the patient is sitting up in bed and more alert today than yesterday. Patient continues to require 2 L of supplemental oxygen today. Patient did eat breakfast however is kind of hesitant to eat lunch. She was started on fluconazole yesterday for Yanira in his bronchial washings. He is afebrile Objective - Vital Signs Vital signs: Vital Signs Temp 97.2 F L 08/13/16 07:00 Pulse 68 08/13/16 11:28 Resp 16 08/13/16 08:00 BP 112/58 08/13/16 07:00 Pulse Ox 94 L 08/13/16 07:18 Intake & Output 08/12/16 08/13/16 08/13/16 18:59 06:59 18:59 Intake Total 100 Output Total 500 Balance -500 100 Intake: Oral 100 Output: Urine 500 Other: Voiding Method Urinal Urinal Diaper Diaper # Voids 2 2 1 - Exam GENERAL EXAM: Alert, nonverbal, comfortable in no apparent distress. HEAD: Normocephalic. EYES: Normal reaction of pupils, equal size. NOSE: Clear with pink turbinates. THROAT: No erythema or exudates. NECK: No masses, no JVD. CHEST: No chest wall deformity. LUNGS: Lung sounds course some scattered rhonchi noted. Bases diminished CVS: S1 and S2 normal with no audible mumurs, regular rhythm. ABDOMEN: No hepatosplenomegaly, normal bowel sounds, no guarding or rigidity. EXTREMITIES: No edema noted, pedal pulses palpable. SKIN: Bilateral erythema noted to feet CENTRAL NERVOUS SYSTEM: No focal deficits, tone is normal in all 4 extremities. - Labs CBC & Chem 7: 08/13/16 07:08 08/13/16 07:08 Labs: Abnormal Lab Results - Last 24 Hours (Table) 08/12/16 08/12/16 08/13/16 Range/Units 17:04 20:46 07:08 RBC 3.87 L (4.30-5.90) m/uL Hgb 12.7 L (13.0-17.5) gm/dL MCV 102.0 H (80.0-100.0) fL Lymphocytes # 0.4 L (1.0-4.8) k/uL Sodium (137-145) mmol/L Glucose (74-99) mg/dL POC Glucose (mg/dL) 145 H 136 H (75-99) mg/dL Calcium (8.4-10.2) mg/dL 08/13/16 08/13/16 08/13/16 Range/Units 07:08 07:16 11:48 RBC (4.30-5.90) m/uL Hgb (13.0-17.5) gm/dL MCV (80.0-100.0) fL Lymphocytes # (1.0-4.8) k/uL Sodium 136 L (137-145) mmol/L Glucose 166 H (74-99) mg/dL POC Glucose (mg/dL) 146 H 197 H (75-99) mg/dL Calcium 8.1 L (8.4-10.2) mg/dL Microbiology - Last 24 Hours (Table) 08/10/16 10:00 Fungal Culture - Preliminary Bronchial Washings - Left Yanira albicans 08/06/16 12:00 Blood Culture - Final Blood No Growth after 144 hours Assessment and Plan Plan: Assessment Bilateral pneumonia, more so on the right than the left, suspect aspiration pneumonia Acute hypoxic respiratory failure Small right pleural effusion Sepsis Dehydration Tachycardia Hypotension Down syndrome Lateral vocal cord paresis Plan Medications have been reviewed and will be continued as ordered. We will add fluconazole due to the patient's micro-report from bronchoscopy. Continue with IV antibiotics and antifungals. Continue IV steroids. Continue with pulmonary hygiene, coughing and deep breathing exercises, and supportive care. Supplemental oxygen to maintain oxygen saturations of 92% or better. Continue nebulizer treatments. GI and DVT prophylaxis. Continue with Miconazole cream to bilateral feet. Patient is a DO NOT RESUSCITATE. We will continue to monitor labs/results and adjust treatment as necessary. Further recommendations pending. I performed an examination of the patient and discussed their management with the nurse practitioner. I have reviewed the nurse practitioner's note and agree with the documented findings and plan of care.
[2016-08-13] MEDS: FLUCONAZOLE IN NACL,ISO-OSM 200 MG in SALINE 1 100ML.BAG IVPB SCH (15:38)
[2016-08-13] MEDS: SODIUM CHLORIDE 0.9% 1,000 ML IV SCH (15:48)
[2016-08-13 17:05] LABS: Glucose,Whole Blood 140 mg/dL (75-99)
--- NOTE | 2016-08-13 18:30 | PN ---
DATE OF SERVICE: 08/13/2016 I am covering for Dr. Callaway. This 66-year-old gentleman who was admitted with acute bilateral multilobar aspiration pneumonia, also had change in mental status. Patient's sensorium has improved significantly. The patient also has candidiasis from the cultures also. The patient was started on Diflucan IV. The patient is being closely monitored. Patient continued to. Multiple consultants including Pulmonary are following the patient closely. PAST MEDICAL HISTORY: Reviewed. REVIEW OF SYSTEM: Could not be taken. Current medications are reviewed and include: 1. DuoNeb q.i.d. and p.r.n. 2. Aspirin 81 mg daily. 3. Pulmicort 1 mg b.i.d. 4. Fluconazole 200 mg IV. 5. Heparin 5000 units subcu. 6. Levaquin 500 mg daily. 7. Solu-Medrol 40 IV every 8. 8. Monistat. 9. Narcan. 10. Protonix. 11. Zosyn IV every 8. PHYSICAL EXAMINATION: VITAL SIGNS: Pulse 69, blood pressure 112/58, respirations 16, temperature 96, pulse ox 94% on room air. HEENT: Conjunctivae normal. NECK: No JVD. CARDIOVASCULAR: S1 and S2 muffled. LUNGS: Breath sounds diminished in the bases. Few scattered rhonchi and crackles. ABDOMEN: Soft, nontender. No masses palpable. EXTREMITIES: Legs no edema. NERVOUS SYSTEM: Sensorium has improved. The patient continues to be nonverbal and diffusely weak also. LABS: Investigations at this time show WBC 5, hemoglobin is 12.2. Sodium 136. ASSESSMENT: 1. Acute bilateral aspiration pneumonia, multilobar, with possibly gram-negative sepsis present on admission. 2. Change in mental status, metabolic encephalopathy, possibly secondary to hypoxia and sepsis. 3. Status post bronchoscopy with bronchial lavage with Yanira. 4. Anemia, possibly dilutional. 5. Increased MCV. 6. Hyponatremia. 7. Dehydration, present on admission, improved. 8. Dysphagia with history of esophageal stricture and previous dilatation. 9. History of aspiration pneumonia. 10. History of Down's syndrome. 11. Mild hypokalemia. 12. Increased random blood sugar. 13. NO CODE, NO CPR, NO VENT. RECOMMENDATIONS AND DISCUSSION: In this 66 gentleman who presented with multiple complex medical issues, we will monitor the patient closely, continue the current medications and bronchodilators. Continue with antibiotics. Taper the steroids. Sensorium is improved. Continue prognosis is guarded because of multiple complex medical issues as discussed previously. This 66-year-old gentleman had multiple bilateral aspiration pneumonia. The patient needs to be with head of bed elevated to 45 degrees all the time. The patient requires hospital bed to prevent aspiration and any subsequent complications. See orders for further details. hotel general manager and social director arranged hospital bed to maintain aspiration precautions at home because of the severe bilateral aspiration pneumonia and potential complications. ANNE
[2016-08-13 20:51] LABS: Glucose,Whole Blood 126 mg/dL (75-99)
[2016-08-14 06:55] LABS: Glucose,Whole Blood 141 mg/dL (75-99)
[2016-08-14 07:25] LABS: Mis test requested (Non-blood) Pneumocytis DFA
[2016-08-14] MEDS: MICONAZOLE NITRATE 2% CREAM 14 GM TUBE TOPICAL SCH (07:34)
[2016-08-14] MEDS: ASPIRIN 81 MG CHEW PO SCH (07:34)
[2016-08-14] MEDS: methylPREDNISolone SOD SUCCI 40 MG/ML 1 ML VIAL IV SCH (07:34)
[2016-08-14] MEDS: HEPARIN SODIUM,PORCINE 5,000 UNIT/ML 1 ML VIAL SQ SCH ×2 (07:34→15:00)
[2016-08-14] MEDS: PANTOPRAZOLE SODIUM 40 MG GRANULE PKT PO SCH (07:34)
[2016-08-14] MEDS: PIPERACILLIN-TAZOBACTAM 3.375 GM in DEXTROSE/WATER 1 50ML.BAG IVPB SCH ×2 (07:35→16:06)
[2016-08-14] MEDS: IPRATROPIUM-ALBUTEROL 3 ML NEB INHALATION SCH ×3 (08:01→15:01)
[2016-08-14] MEDS: BUDESONIDE 1 MG/2 ML NEBU INHALATION SCH (08:02)
[2016-08-14 08:59] LABS: Anion Gap 8 mmol/L; Blood Urea Nitrogen 16 mg/dL (9-20); Calcium 8.1 mg/dL (8.4-10.2); Carbon Dioxide 29 mmol/L (22-30); Chloride 102 mmol/L (98-107); Glucose 158 mg/dL (74-99); Non-African American GFR(MDRD) >60 (>60 ml/min/1.73 sqM); Sodium 139 mmol/L (137-145)
[2016-08-14 09:34] LABS: Basophils % (A) 0 %; CH 33.5; CHCM 32.5; Eosinophils % (A) 0 %; HCT 40.3 % (39.0-53.0); HDW 2.18; HGB 12.9 gm/dL (13.0-17.5); Luc % (Auto) 2; Lymphocytes # (A) 0.6 k/uL (1.0-4.8); Lymphocytes % (A) 11 %; MCH 33.1 pg (25.0-35.0); MCV 103.7 fL (80.0-100.0); Macrocytosis Moderate; Mean Platelet Volume 7.7; Monocytes # (A) 0.2 k/uL (0-1.0); Monocytes % (A) 4 %; Neutrophils # (A) 4.9 k/uL (1.3-7.7); Neutrophils % (A) 83 %; RBC 3.89 m/uL (4.30-5.90); RDW 15.5 % (11.5-15.5); WBC 5.9 k/uL (3.8-10.6); WBC (Perox) 5.87
[2016-08-14 11:48] LABS: Glucose,Whole Blood 200 mg/dL (75-99)
[2016-08-14] MEDS: SODIUM CHLORIDE 0.9% 1,000 ML IV SCH (13:43)
[2016-08-14] MEDS: LEVOFLOXACIN 500MG-D5W PMX 500 MG in DEXTROSE/WATER 1 100ML.BAG IVPB SCH (13:44)
--- NOTE | 2016-08-14 14:06 | P.DS ---
Providers Date of admission: 08/06/16 14:48 Expected date of discharge: 08/14/16 Attending physician: Jax Callaway Consults: 08/06/16 14:48 Consult Physician Stat Consulting Provider: Mack Lynne Consult Reason/Comments: Aspiration pneumonia, sepsis, dehydration, renal insufficiency Do you want consulting provider notified?: Already Contacted Primary care physician: Jax Callaway [facility] Course: Patient is a 66-year-old male, patient of Dr. Jax Callaway in the outpatient setting, with medical history significant for Down syndrome, bowel obstruction, esophageal stenosis requiring dilatation, dysphasia, and pneumonia. Patient presented to the emergency department with chief complaint of decreased oral intake, cough, and generalized weakness. Admission workup with evidence of dehydration, multilobar aspiration pneumonia, and severe sepsis. Patient was fluid resuscitated with 2.5 L of normal saline in the emergency department and started on IV antibiotics in form of Levaquin and Zosyn. Patient was admitted to the intensive care unit with consult to Dr. Lynne for pulmonary and ICU management. Patient was evaluated by speech pathologist who recommending patient be fed pured diet with water only and placed on aspiration precautions. Family declined PEG tube. Patient improved and was transferred out of the intensive care unit to the medical floor. Patient did undergo bronchoscopy with bronchoalveolar lavage when he was noted to have extensive mucus plugging without any mass lesion. Both focal cords were abducted and not moving very well with possible bilateral vocal cord paralysis. Cultures from sputum with evidence of candidiasis. Patient improved significantly during his hospital course and was deemed stable for discharge to [facility] home with close follow-up in the outpatient setting. Discharge diagnoses: 1. Acute bilateral aspiration pneumonia, multilobar, with possible gram- negative sepsis present on admission. 2. Change in mental status, metabolic encephalopathy, possibly secondary to hypoxia and sepsis. 3. Status post bronchoscopy with bronchial lavage with Yanira. 4. Anemia, possible dilutional. 5. Dehydration, present on admission, resolved. 6. Increased random blood sugar. 7. Dysphagia with history of esophageal stricture with previous dilatation. 8. History of aspiration pneumonia. 9. History of Down syndrome. 10. Lateral vocal cord paresis. The above impression and plan have been discussed and directed by Dr. Callaway. Jalen PEÑA acting as scribe for Dr. Callaway. Pertinent Studies: EKG; chest x-ray Procedures: Bronchoscopy Patient Condition at Discharge: Good Plan - Discharge Summary New Discharge Prescriptions: Amoxic-Pot Clav 600-42.9MG/5Ml [Augmentin 600-42.9 mg/5 ml Liquid] 5 ml PO Q12H #75 ml Miconazole 2% Cream [Monistat-Derm] 1 applic TOPICAL BID #1 tube Discharge Medication List Aspirin 81 mg PO DAILY 08/06/16 [History] Cholecalciferol (Vitamin D3) [Vitamin D3] 1 ml PO DAILY 08/06/16 [History] Omeprazole [PriLOSEC] 40 mg PO DAILY 08/06/16 [History] Amoxic-Pot Clav 600-42.9MG/5Ml [Augmentin 600-42.9 mg/5 ml Liquid] 5 ml PO Q12H #75 ml 08/14/16 [Rx] Miconazole 2% Cream [Monistat-Derm] 1 applic TOPICAL BID #1 tube 08/14/16 [Rx] Follow up Appointment(s)/Referral(s): Jax Callaway DO [Primary Care Provider] - 1-2 days Mack Lynne MD [STAFF PHYSICIAN] - 1 Week Patient Instructions/Handouts: Aspiration Pneumonia (DC) Activity/Diet/Wound Care/Special Instructions: Puree, dysphagia diet. 1:1 feed, aspiration precautions. HOB elevated. Change positions every few hours, ambulate with assist. Discharge Disposition: HOME SELF-CARE
[2016-08-14] MEDS: FLUCONAZOLE IN NACL,ISO-OSM 200 MG in SALINE 1 100ML.BAG IVPB SCH (15:00)
[2016-08-14 15:28] VITALS: BP 98/55; PULSE 86; RESP 18; TEMP 97.6
--- NOTE | 2016-08-14 16:33 | PN ---
The patient is seen, evaluated and examined. A 66-year-old man who is seen, evaluated, and examined for mucous plugging, respiratory failure, recurrent aspiration pneumonia and hypoxic respiratory failure. The patient clinically doing well, awake and alert, breathing comfortably. No obvious distress is present. His vitals include blood pressure is 115/71, respiratory rate 16 to 18, heart rate is 70, temperature 97, saturation 94% on room air. HEENT EXAMINATION: Otherwise unremarkable. NECK: Supple. LUNGS: Good air entry bilaterally. HEART: Regular rate and rhythm. ABDOMEN: Soft. NEUROLOGICAL EXAMINATION: Otherwise arousable, opens eyes but remains nonverbal, noncommunicative. Revealed basilar infiltrate performed on 08/12/2016. Other laboratory data reviewed which include white cell count 5900, hemoglobin 12, hematocrit 40, platelet count 280,000. Sodium is 137, which is 4.0, BUN and creatinine 16 and 0.83. Glucose 200. Culture results and reports are reviewed. Fungal culture ( ) some Yanira was seen. Bronchial washings have been unremarkable. Medications include: 1. DuoNeb unit dose 4 times a day. 2. Aspirin 81 mg. 3. Pulmicort 1 mg 2 times a day. 4. Fluconazole 100 mg IV. 5. Also on heparin 5000 units subcu q.8 hourly. 6. Levaquin 500 mg daily. 7. Solu-Medrol 40 mg q.12. 8. Zosyn 3.375 q.8h. IMPRESSION: Bilateral pneumonia and acute hypoxic respiratory failure, likely mixed bacterial and gram-negative. Would recommend to discontinue the Diflucan. Patient can go home from pulmonary standpoint, on oral Augmentin suspension 500 mg 2 times a day for a total of 7 to 10 days. Will follow.
[2016-08-14 17:19] LABS: Glucose,Whole Blood 153 mg/dL (75-99)
== END 2016-08-14 20:39 | disposition home or self-care (01) | DRG 853 ==
LOC: EC 11:35 → 6ICU 14:48 → 6SEL 08-08 17:24 → 4MS4W 08-09 15:33
PROVIDERS: ADMIT Family Medicine; ATTEND Family Medicine
PROC: 0B9F8ZX Drainage of Right Lower Lung Lobe, Via Natural or Artificial Opening Endoscopic, Diagnostic (ICD-10-PCS; 2016-08-10)
PROC: 0B9J8ZX Drainage of Left Lower Lung Lobe, Via Natural or Artificial Opening Endoscopic, Diagnostic (ICD-10-PCS; principal; 2016-08-10 07:30)
DX: A41.9 Sepsis, unspecified organism (principal); G93.41 Metabolic encephalopathy; J96.01 Acute respiratory failure with hypoxia; J69.0 Pneumonitis due to inhalation of food and vomit; J15.6 Pneumonia due to other Gram-negative bacteria; J90 Pleural effusion, not elsewhere classified; E87.1 Hypo-osmolality and hyponatremia; J38.02 Paralysis of vocal cords and larynx, bilateral; T17.990A Other foreign object in respiratory tract, part unspecified in causing asphyxiation, initial encounter; E86.0 Dehydration; D64.89 Other specified anemias; E87.6 Hypokalemia; N28.9 Disorder of kidney and ureter, unspecified; Q90.9 Down syndrome, unspecified; R13.10 Dysphagia, unspecified; R65.20 Severe sepsis without septic shock; R73.9 Hyperglycemia, unspecified; Z79.82 Long term (current) use of aspirin; Z79.899 Other long term (current) drug therapy; Z66 Do not resuscitate; Z87.01 Personal history of pneumonia (recurrent)
CPT/HCPCS: 31624; 36415; 71010; 71020; 80048; 80053; 81001; 82550; 82553; 83605; 83735; 83880; 84100; 84484; 85025; 85610; 85730; 87040; 87070; 87102; 87116; 87205; 87206; 87252; 87299; 87496; 87498; 87502; 87529; 87541; 87798; 88108; 88305; 93005; 94640; 94760; 96361; 96365; 96366; 96367; 99291

== ENCOUNTER 2016-09-02 16:33 | Inpatient (IN) | payer MEDICARE, OTHER ==
[2016-09-02] MEDS ORDERED: LEVOFLOXACIN 750MG-D5W PMX 750 MG in DEXTROSE/WATER 1 150ML.BAG IVPB STA (17:20)
--- NOTE | 2016-09-02 17:20 | ED ---
General Adult HPI - General Chief complaint: Neuro Symptoms/Deficit Stated complaint: Right Sided Weakness Time Seen by Provider: 09/02/16 16:40 Source: family, RN notes reviewed Mode of arrival: wheelchair Limitations: language barrier, altered mental status, physical limitation - History of Present Illness Initial comments: This is a 66-year-old male who presents to the emergency department with a past medical history significant for Down syndrome and multiple episodes of aspiration pneumonia. Today he was at [facility] and they thought he was weak on the right side to the called the family and the family came to get him and brought him to the emergency department. Patient's family noted that he wasn't able to walk and it didn't look like he was using the right side of his body as much as the left. They stated that the symptoms started at 10 AM this morning. Patient is unable to give any history or cooperate with any exam. Patient does have 101.4 fever axillary. Patient family states he has not been coughing and it did not appear that he was short of breath. He also denied any vomiting or diarrhea. Patient denied any recent injury or trauma. - Related Data Home Medications Medication Instructions Recorded Confirmed Aspirin 81 mg PO DAILY 08/06/16 09/02/16 Cholecalciferol (Vitamin D3) 1 ml PO DAILY 08/06/16 09/02/16 [Vitamin D3] Omeprazole [PriLOSEC] 40 mg PO DAILY 08/06/16 09/02/16 Previous Rx's Medication Instructions Recorded Miconazole 2% Cream [Monistat-Derm] 1 applic TOPICAL BID #1 tube 08/14/16 Allergies Allergy/AdvReac Type Severity Reaction Status Date / Time No Known Allergies Allergy Verified 09/02/16 16:49 Review of Systems ROS Statement: Those systems with pertinent positive or pertinent negative responses have been documented in the HPI. ROS Other: All systems not noted in ROS Statement are negative. Past Medical History Past Medical History: Pneumonia Additional Past Medical History / Comment(s): NON VERBAL, DOWN SYNDROME,HERNIA History of Any Multi-Drug Resistant Organisms: None Reported Past Surgical History: No Surgical Hx Reported Additional Past Surgical History / Comment(s): BOWEL OBSTRUCTION, ESOPHAGEAL STRETCHING Past Anesthesia/Blood Transfusion Reactions: No Reported Reaction Past Psychological History: No Psychological Hx Reported Smoking Status: Never smoker Past Alcohol Use History: None Reported Past Drug Use History: None Reported General Exam - General Exam Comments Initial Comments: GENERAL: Patient is well-developed and well-nourished. Patient is nontoxic and well- hydrated and is in no acute distress. ENT: Neck is soft and supple. No significant lymphadenopathy is noted. Oropharynx is clear. Moist mucous membranes. Neck has full range of motion without eliciting any pain. EYES: The sclera were anicteric and conjunctiva were pink and moist. Extraocular movements were intact and pupils were equal round and reactive to light. Eyelids were unremarkable. PULMONARY: Unlabored respirations. Good breath sounds bilaterally. Patient has crackles in the right base. CARDIOVASCULAR: There is a regular rate and rhythm without any murmurs gallops or rubs. ABDOMEN: Soft and nontender with normal bowel sounds. SKIN: Skin is clear with no lesions or rashes and otherwise unremarkable. NEUROLOGIC: Patient is alert and oriented 0 which is his baseline per family. It is difficult to assess the patient's motor and sensory skills because he does not interact or understand anything that I say. However he does seem to be a bit weaker on the right than the left both of the arm and the leg. MUSCULOSKELETAL: Patient has a large bruise on the right forearm. LYMPHATICS: No significant lymphadenopathy is noted PSYCHIATRIC: Unable to because he is not oriented at all. Limitations: language barrier, altered mental status, physical limitation Course Vital Signs 09/02/16 09/02/16 09/02/16 16:35 17:09 17:45 Temperature 100.0 F H 101.3 F H Pulse Rate 48 L 109 H Respiratory 18 24 Rate Blood Pressure 102/54 87/54 O2 Sat by Pulse 88 L 93 L Oximetry 09/02/16 09/02/16 18:58 19:54 Temperature 98.5 F Pulse Rate 97 94 Respiratory 18 14 Rate Blood Pressure 112/57 77/45 O2 Sat by Pulse 98 91 L Oximetry Procedures - Sepsis Sepsis Focused Exam #1 Time Sepsis Criteria Met: 16:45 Sepsis Focused Exam Date: 09/02/16 Sepsis Focused Exam Time: 20:01 Sepsis Focused Exam Complete: Yes Vital Signs & RN Notes Reviewed: Yes Capillary Refill: > 2 Seconds: Fingers Peripheral Pulses: Weak: Radial (R) Skin Color: Normal for Patient Respiratory Exam: normal lung sounds Cardiovascular Exam: regular rate Medical Decision Making - Medical Decision Making EKG shows sinus tachycardia with a PAC at 107 bpm [place] interval is 134 Liza is 54 QT interval 314 QTC is 419. EKG shows no ST segment elevation or depression or T wave abnormalities are noted. Chest x-ray shows bilateral pneumonia. Patient lactic acid level of 6 patient' s white count is 25,000. Family has requested that there be no central lines no pressors and the patient is a no code. I give the patient Levaquin and Zosyn as antibiotic to the emergency department I will add clindamycin on the floor. Patient is septic shock. Patient also has rhabdomyolysis. I started the patient on sodium bicarb drip. I started the patient on Levaquin and Zosyn. I continue those on the floor. I spoke with Dr. Gillespie he agreed to admit the patient admitted the patient wrote admitting orders. - Lab Data Result diagrams: 09/02/16 17:20 09/02/16 17:20 Lab Results 09/02/16 09/02/16 09/02/16 Range/Units 17:20 17:20 17:20 WBC 25.9 H* (3.8-10.6) k/uL RBC 4.43 (4.30-5.90) m/uL Hgb 15.0 (13.0-17.5) gm/dL Hct 44.7 (39.0-53.0) % MCV 100.8 H (80.0-100.0) fL MCH 34.0 (25.0-35.0) pg MCHC 33.7 (31.0-37.0) g/dL RDW 16.0 H (11.5-15.5) % Plt Count 222 (150-450) k/uL Neutrophils % 96 % Lymphocytes % 1 % Monocytes % 2 % Eosinophils % 0 % Basophils % 0 % Neutrophils # 24.9 H (1.3-7.7) k/uL Lymphocytes # 0.3 L (1.0-4.8) k/uL Monocytes # 0.5 (0-1.0) k/uL Eosinophils # 0.0 (0-0.7) k/uL Basophils # 0.1 (0-0.2) k/uL Anisocytosis Slight Macrocytosis Slight PT (9.0-12.0) sec INR (<1.1) APTT (22.0-30.0) sec Sodium 133 L (137-145) mmol/L Potassium 4.7 (3.5-5.1) mmol/L Chloride 99 (98-107) mmol/L Carbon Dioxide 18 L (22-30) mmol/L Anion Gap 16 mmol/L BUN 34 H (9-20) mg/dL Creatinine 2.70 H (0.66-1.25) mg/dL Est GFR (MDRD) Af Amer 29 (>60 ml/min/1.73 sqM) Est GFR (MDRD) Non-Af 24 (>60 ml/min/1.73 sqM) Glucose 105 H (74-99) mg/dL Plasma Lactic Acid Floyd (0.7-2.0) mmol/L Calcium 7.2 L (8.4-10.2) mg/dL Total Bilirubin 0.2 (0.2-1.3) mg/dL AST 546 H (17-59) U/L ALT 114 H (21-72) U/L Alkaline Phosphatase 88 (38-126) U/L Total Creatine Kinase 77826 H (55-170) U/L CK-MB (CK-2) 67.8 H* (0.0-2.4) ng/mL CK-MB (CK-2) Rel Index Troponin I 0.176 H* (0.000-0.034) ng/mL Total Protein 6.3 (6.3-8.2) g/dL Albumin 2.7 L (3.5-5.0) g/dL Urine Color Urine Appearance (Clear) Urine pH (5.0-8.0) Ur Specific Jachin (1.001-1.035) Urine Protein (Negative) Urine Glucose (UA) (Negative) Urine Ketones (Negative) Urine Blood (Negative) Urine Nitrite (Negative) Urine Bilirubin (Negative) Urine Urobilinogen (<2.0) mg/dL Ur Leukocyte Esterase (Negative) Influenza Type A RNA (Not Detectd) Influenza Type B (PCR) (Not Detectd) 09/02/16 09/02/16 09/02/16 Range/Units 17:20 17:20 17:30 WBC (3.8-10.6) k/uL RBC (4.30-5.90) m/uL Hgb (13.0-17.5) gm/dL Hct (39.0-53.0) % MCV (80.0-100.0) fL MCH (25.0-35.0) pg MCHC (31.0-37.0) g/dL RDW (11.5-15.5) % Plt Count (150-450) k/uL Neutrophils % % Lymphocytes % % Monocytes % % Eosinophils % % Basophils % % Neutrophils # (1.3-7.7) k/uL Lymphocytes # (1.0-4.8) k/uL Monocytes # (0-1.0) k/uL Eosinophils # (0-0.7) k/uL Basophils # (0-0.2) k/uL Anisocytosis Macrocytosis PT 11.2 (9.0-12.0) sec INR 1.1 (<1.1) APTT 26.9 (22.0-30.0) sec Sodium (137-145) mmol/L Potassium (3.5-5.1) mmol/L Chloride (98-107) mmol/L Carbon Dioxide (22-30) mmol/L Anion Gap mmol/L BUN (9-20) mg/dL Creatinine (0.66-1.25) mg/dL Est GFR (MDRD) Af Amer (>60 ml/min/1.73 sqM) Est GFR (MDRD) Non-Af (>60 ml/min/1.73 sqM) Glucose (74-99) mg/dL Plasma Lactic Acid Floyd 6.4 H* (0.7-2.0) mmol/L Calcium (8.4-10.2) mg/dL Total Bilirubin (0.2-1.3) mg/dL AST (17-59) U/L ALT (21-72) U/L Alkaline Phosphatase (38-126) U/L Total Creatine Kinase (55-170) U/L CK-MB (CK-2) (0.0-2.4) ng/mL CK-MB (CK-2) Rel Index Troponin I (0.000-0.034) ng/mL Total Protein (6.3-8.2) g/dL Albumin (3.5-5.0) g/dL Urine Color Urine Appearance (Clear) Urine pH (5.0-8.0) Ur Specific Jachin (1.001-1.035) Urine Protein (Negative) Urine Glucose (UA) (Negative) Urine Ketones (Negative) Urine Blood (Negative) Urine Nitrite (Negative) Urine Bilirubin (Negative) Urine Urobilinogen (<2.0) mg/dL Ur Leukocyte Esterase (Negative) Influenza Type A RNA Not Detected (Not Detectd) Influenza Type B (PCR) Not Detected (Not Detectd) 09/02/16 Range/Units 17:48 WBC (3.8-10.6) k/uL RBC (4.30-5.90) m/uL Hgb (13.0-17.5) gm/dL Hct (39.0-53.0) % MCV (80.0-100.0) fL MCH (25.0-35.0) pg MCHC (31.0-37.0) g/dL RDW (11.5-15.5) % Plt Count (150-450) k/uL Neutrophils % % Lymphocytes % % Monocytes % % Eosinophils % % Basophils % % Neutrophils # (1.3-7.7) k/uL Lymphocytes # (1.0-4.8) k/uL Monocytes # (0-1.0) k/uL Eosinophils # (0-0.7) k/uL Basophils # (0-0.2) k/uL Anisocytosis Macrocytosis PT (9.0-12.0) sec INR (<1.1) APTT (22.0-30.0) sec Sodium (137-145) mmol/L Potassium (3.5-5.1) mmol/L Chloride (98-107) mmol/L Carbon Dioxide (22-30) mmol/L Anion Gap mmol/L BUN (9-20) mg/dL Creatinine (0.66-1.25) mg/dL Est GFR (MDRD) Af Amer (>60 ml/min/1.73 sqM) Est GFR (MDRD) Non-Af (>60 ml/min/1.73 sqM) Glucose (74-99) mg/dL Plasma Lactic Acid Floyd (0.7-2.0) mmol/L Calcium (8.4-10.2) mg/dL Total Bilirubin (0.2-1.3) mg/dL AST (17-59) U/L ALT (21-72) U/L Alkaline Phosphatase (38-126) U/L Total Creatine Kinase (55-170) U/L CK-MB (CK-2) (0.0-2.4) ng/mL CK-MB (CK-2) Rel Index Troponin I (0.000-0.034) ng/mL Total Protein (6.3-8.2) g/dL Albumin (3.5-5.0) g/dL Urine Color Yellow Urine Appearance Clear (Clear) Urine pH 5.5 (5.0-8.0) Ur Specific Jachin 1.014 (1.001-1.035) Urine Protein Trace H (Negative) Urine Glucose (UA) Negative (Negative) Urine Ketones Negative (Negative) Urine Blood Negative (Negative) Urine Nitrite Negative (Negative) Urine Bilirubin Negative (Negative) Urine Urobilinogen <2.0 (<2.0) mg/dL Ur Leukocyte Esterase Negative (Negative) Influenza Type A RNA (Not Detectd) Influenza Type B (PCR) (Not Detectd) Critical Care Time Critical Care Time: Yes Total Critical Care Time: 35 Disposition Clinical Impression: Septic shock, Pneumonia, aspiration, Rhabdomyolysis Disposition: ADMITTED IP TO THIS [facility] Time of Disposition: 19:12
[2016-09-02] MEDS ORDERED: ACETAMINOPHEN IVPB STA (17:32)
[2016-09-02] MEDS ORDERED: SALINE IVPB STA (17:32)
[2016-09-02 17:40] LABS: Anisocytosis Slight; Basophils # (A) 0.1 k/uL (0-0.2); Basophils % (A) 0 %; CH 33.8; CHCM 33.6; Eosinophils % (A) 0 %; HCT 44.7 % (39.0-53.0); HDW 2.33; Luc # (Auto) 0.13; Luc % (Auto) 1; Lymphocytes # (A) 0.3 k/uL (1.0-4.8); Lymphocytes % (A) 1 %; MCHC 33.7 g/dL (31.0-37.0); MCV 100.8 fL (80.0-100.0); Macrocytosis Slight; Mean Platelet Volume 7.9; Monocytes # (A) 0.5 k/uL (0-1.0); Monocytes % (A) 2 %; Neutrophils # (A) 24.9 k/uL (1.3-7.7); Neutrophils % (A) 96 %; RBC 4.43 m/uL (4.30-5.90); WBC (Perox) 25.07
[2016-09-02 17:46] LABS: WBC 25.9 k/uL (3.8-10.6)
[2016-09-02 17:48] LABS: INR 1.1 (<1.1); Partial Thromboplastin Time 26.9 sec (22.0-30.0); Prothrombin Time 11.2 sec (9.0-12.0)
[2016-09-02 17:55] LABS: Calcium 7.2 mg/dL (8.4-10.2); Potassium 4.7 mmol/L (3.5-5.1); Total Bilirubin 0.2 mg/dL (0.2-1.3); Total Protein 6.3 g/dL (6.3-8.2)
[2016-09-02] MEDS: SODIUM CHLORIDE 0.9% 500 ML IV SCH ×2 (17:57→18:56)
[2016-09-02 18:00] LABS: Appearance,Urine Clear (Clear); Bilirubin,Urine Negative (Negative); Glucose,Urine (UA) Negative (Negative); Ketones,Urine Negative (Negative); Leukocyte Esterase,Urine Negative (Negative); Nitrite,Urine Negative (Negative); PH, Urine 5.5 (5.0-8.0); Protein,Urine Trace (Negative); Specific Gravity,Urine 1.014 (1.001-1.035); UA Billing (MACRO vs. MICRO) CHEM; Urobilinogen,Urine <2.0 mg/dL (<2.0)
[2016-09-02 18:13] LABS: Creatine Kinase MB 67.8 ng/mL (0.0-2.4); Troponin I 0.176 ng/mL (0.000-0.034)
[2016-09-02] MEDS ORDERED: IBUPROFEN IV 600 MG in SODIUM CHLORIDE 0.9% 250 ML IV ONE (18:30)
--- NOTE | 2016-09-02 18:33 | CT ---
EXAMINATION TYPE: CT brain wo con DATE OF EXAM: 09/02/2016 COMPARISON: NONE INDICATION: Patient poor historian. Patient shows signs of right side weakness. DLP: 2498.6 mGycm, Automated exposure control for dose reduction was used. CONTRAST: None CT of the brain is performed utilizing 3 mm thick sections through the posterior fossa and 3 mm thick sections through the remaining calvarium. Study is performed within 24 hours of arrival to the hosp ital. Exam is limited due to motion artifact. No abnormal hyperdensity is present to suggest an acute intracranial hemorrhage. No mass lesion is evident. No acute infarcts are evident. Ventricles and sulci are prominent for the patient age. Paranasal sinuses and mastoid air cells within the [id number] are clear. IMPRESSIONS: 1. Exam limited due to motion artifact. 2. No obvious acute changes identified.
[2016-09-02] MEDS ORDERED: PIPERACILLIN-TAZOBACTAM 3.375 GM in DEXTROSE/WATER 1 50ML.BAG IVPB STA (19:03)
[2016-09-02] MEDS ORDERED: PNEUMONIA PROTOCOL UTILIZED 1 EACH MISC PO PRN (19:22)
--- NOTE | 2016-09-02 19:37 | XR ---
EXAMINATION TYPE: XR chest 2V DATE OF EXAM: 09/02/2016 COMPARISON: 08/12/2016 INDICATION: Fever weakness TECHNIQUE: Frontal and lateral views of the chest are obtained. FINDINGS: The heart size is normal. The pulmonary vasculature is slightly prominent. Lower lobe atelectasis is present. Findings appear worsening from comparison.. IMPRESSION: 1. Worsening bibasilar infiltrates and right lower lobe atelectasis.
--- NOTE | 2016-09-02 19:39 | XR ---
EXAMINATION TYPE: XR forearm RT DATE OF EXAM: 09/02/2016 COMPARISON: NONE HISTORY: Pain bruise forearm TECHNIQUE: 2 view right forearm FINDINGS: No acute fractures evident. Ulnar negative variance is present. Soft tissues appear within normal limits. IMPRESSION: 1. No acute osseous abnormality.
[2016-09-02] MEDS: DEXTROSE 5% IN WATER 1,000 ML with SODIUM BICARB (1 MEQ/ML) 150 ML IV SCH (21:05)
[2016-09-02] MEDS ORDERED: SODIUM CHLORIDE 0.9% 2,000 ML IV ONE (21:58)
[2016-09-02 23:30] VITALS: BMI 20.2
[2016-09-03] MEDS ORDERED: SCOPOLAMINE 1.5MG/72HR PATCH TRANSDERM PRN (01:09)
[2016-09-03] MEDS ORDERED: ACETAMINOPHEN SUPPOSITORY 650 MG SUPP RECTAL PRN (01:09)
[2016-09-03] MEDS ORDERED: LORazepam 2 MG/ML SYRINGE IV PRN (01:09)
[2016-09-03] MEDS ORDERED: ATROPINE OPHTH SOLN 1% 5ML BTL SUBLINGUAL PRN (01:09)
[2016-09-03] MEDS ORDERED: PIPERACILLIN-TAZOBACTAM 3.375 GM in DEXTROSE/WATER 1 50ML.BAG IVPB SCH (02:00)
[2016-09-03] MEDS: DEXTROSE 5% IN WATER 1,000 ML with SODIUM BICARB (1 MEQ/ML) 150 ML IV SCH (04:44)
[2016-09-03] MEDS ORDERED: MORPHINE SULFATE 2 MG/ML SYRINGE IVP PRN (06:17)
[2016-09-03 10:58] VITALS: RESP 18
[2016-09-03] MEDS ORDERED: LEVOFLOXACIN 750MG-D5W PMX 750 MG in DEXTROSE/WATER 1 150ML.BAG IVPB SCH (16:00)
[2016-09-03 16:03] VITALS: BP 67/32; PULSE 99; TEMP 98.4
--- NOTE | 2016-09-03 16:30 | DS ---
DATE OF ADMISSION: 09/02/2016 DATE OF DISCHARGE/TRANSFER: 09/03/2016 H&P AND DISCHARGE SUMMARY HOSPITAL COURSE: This is a pleasant 66-year-old debilitate white male who had a recent hospitalization and discharge on August 14. He presented to the emergency department with multiple episodes of aspiration pneumonia. We think patient may have aspirated again. He is unable to give a good history and he suffers from Down syndrome. He just finished antibiotics from previous aspiration problem, but the patient did have a fever of 101.4 and he has been coughing uncontrollably with some shortness of breath. Review of systems is not obtained. Pertinent old records show that he has had this problem in the past and a recent hospitalization. His past medical history is significant for: 1. Pneumonia. 2. Down syndrome. 3. Bowel obstruction. 4. Esophageal stricture requiring esophageal dilatation. SOCIAL: Negative for tobacco or alcohol. Lives with caregiver. Has a legal guardian, who is his sister. MEDICATIONS: 1. Vitamin D. 2. Prilosec. 3. Aspirin. ALLERGIES: NO KNOWN DRUG ALLERGIES. PHYSICAL EXAMINATION: Normocephalic, atraumatic with normal Down features. Non-verbal. Not communicating. His mucous membranes are slightly dry. Pupils are equal, round, reactive to light. LUNGS: Labored breathing with some crackles in the right base. HEART: Regular rate and rhythm. ABDOMEN: Soft, non-tender. Thin. SKIN: Warm and dry to palpation. NEUROLOGICAL: Baseline per family. MUSCULOSKELETAL: No abnormalities noted. IMPRESSION: 1. Recurrent aspiration pneumonia. 2. Sepsis, acute, with hypotension and fever. Chest x-ray shows bilateral aspiration-type pneumonia. Patient has elevated lactic acid level at 6. White count is 25,000. Family had already requested that patient have no central lines, no pressors given, and no resuscitation. Patient is currently NO CODE. Patient was initially placed on Levaquin and Zosyn and clindamycin was added on the floor. Patient is in septic shock and has a slight degree of rhabdomyolysis. We started the patient on sodium bicarbonate as well. After discussing with the family, it is felt that patient would be a better candidate for outpatient hospice program secondary to recurrent issues with aspiration pneumonia. His sister Wendi, his legal guardian, was informed of these decisions. I tried to call her myself but did not get anybody home. It is reported that she has talked to Hospice already in my absence. Everybody was in 100% agreement that Joshua be sent to hospice today with comfort care. Comfort care will be signed, orders given and will continue. He is to continue on any comfort medications, including comfort care set, including scopolamine patch, omeprazole. Vitamin D can be discontinued. Will continue to follow patient's progress. I will be glad to follow him during his hospice course.
== END 2016-09-03 18:42 | disposition hospice, home (50) | DRG 871 ==
LOC: EC 16:33 → 6SEL 19:32
PROVIDERS: ADMIT Family Medicine; ATTEND Family Medicine
DX: A41.9 Sepsis, unspecified organism (principal); J69.0 Pneumonitis due to inhalation of food and vomit; R65.21 Severe sepsis with septic shock; M62.82 Rhabdomyolysis; Q90.9 Down syndrome, unspecified; Z51.5 Encounter for palliative care; Z79.82 Long term (current) use of aspirin; Z79.899 Other long term (current) drug therapy
CPT/HCPCS: 36415; 70450; 71020; 80053; 81003; 82550; 82553; 83605; 84484; 85025; 85610; 85730; 87040; 87086; 87502; 93005; 96365; 96366; 96368; 99291